=== PATIENT | female | born 1965 | race Hispanic/Latino ===

== ENCOUNTER 2023-08-31 22:20 | Inpatient (IN) | payer SELFPAY ==
--- OUTSIDE RECORDS SUMMARY | 2023-08-31 22:25 | XMS REPORT | Continuity of Care Document ---
Author Name Unknown Address [address] [facility] [address] [place] [address] [facility] thconnect Address [address] [facility] [address] [place] [address] Care Team Providers Care Crude Tester Name Role Phone PCP, PATIENT DOES NOT HAVE A Primary Care Physic merle Unavailable CHUCHO MAURO Attending Clinician UnaCHUCHO Clement Attending Clinician Unav Melany Dias MD Attending Clinician [phone] L_Jordan Attending Clinician Unavailable LC HERNANDEZ Attending Clinician Unavaila Lc Jay Attending Clinician [phone] NERY VILLALOBOS Attending Clinician Unavailable NERY VILLALOBOS Attending Clinician Unavailable STACI Attending Clinician Unavailable Katalina Panda Attending Clinician [phone] Tere Miramontes MD Attending Clinician [phone] CHUCHO MAURO Admitting Clinician Unaeliza Vega Admitting Clinician Unavailable LC HERNANDEZ Admitting Clinician Unavaila NERY Thomas Admitting Clinician Unavailable STACI Admitting Clinician Unavailable Payers Payer Name Policy Type Policy Number Effective Date Expirati on Date Source Problems Condition Name Condition Details Condition Category Status Onset Date Resolution Date Last Treatment Date Treating Clinician Comments Source Pain in joint of left shoulder Pain in joint of left shoulder Disease Active 08-24 00:00: 00 [facility] Type 2 diabetes mellitus with hyperglyce marlon, without long-term current use of insulin Type 2 diabetes mellitus with hyperglyce marlon, without long-term current use of insulin Disease Active 08-24 00:00: 00 [facility] Cerebrovas cular accident (CVA), unspecifie d mechanism Cerebrovas cular accident (CVA), unspecifie d mechanism Disease Active 08-23 00:00: 00 [facility] Chronic back pain Chronic Back Pain Problem Active 15 00:00: 00 [facility] Type 2 diabetes mellitus Type 2 Diabetes Mellitus Problem Active 08-29 00:00: 00 [facility] Mixed hyperlipid emia Mixed Hyperlipid emia Problem Active 204 00:00: 00 [facility] ALT (SGPT) level raised ALT (SGPT) Level Raised Problem Active 204 00:00: 00 [facility] Abnormal blood pressure Abnormal Blood Pressure Problem Active 08-29 00:00: 00 [facility] Increased frequency of urination Increased Frequency of Urination Problem Active 08-24 00:00: 00 [facility] Muscle spasms of head AND/OR neck Muscle Spasms of Head AND/OR Neck Problem Active 08-24 00:00: 00 [facility] Rizvi's palsy Rizvi's Palsy Problem Active 08-24 00:00: 00 [facility] Fatigue Fatigue Problem Active 08-24 00:00: 00 [facility] Breast pain in female Breast pain in female Disease Active 11-10 00:00: 00 [facility] Lump or mass in breast Lump or mass in breast Disease Active 11-10 00:00: 00 Overview: Formattin g of this note might be different from the original. Mammogram and ultrasoun d performed on 11/27/13; negative. Return to routine screening . [facility] Elevated blood pressure reading without diagnosis of hypertensi on Elevated blood pressure reading without diagnosis of hypertensi on Disease Active 11-10 00:00: 00 [facility] Obesity Obesity Disease Active 11-10 00:00: 00 Overview: Formattin g of this note might be different from the original. ICD10 Diagnosis Term [employer] [facility] General counseling and advice for contracept nikhil management General counseling and advice for contracept nikhil management Disease Active 11-10 00:00: 00 Overview: Formattin g of this note might be different from the original. ICD10 Diagnosis Term [employer] [facility] Irregular menstrual cycle Irregular menstrual cycle Disease Active 11-10 00:00: 00 [facility] Allergies, Adverse Reactions, Alerts Allergy Name Allergy Type Status Severity Reaction(s) Onset Date Inactive Date Treating Clinician Comments Source AMPICILL IN-SULBA CTAM DRUG [facility]: 00 [facility] to adverse reaction s Active [facility] 08-20 00:00: 00 [facility] NO KNOWN ALLERGIE S Drug Class Active [facility] Social History Social Habit Start Date Stop Date Quantity Comments Source History of tobacco use Cigarette Smoker [facility] intake 2023-08-24 00:00:00 2023-08-24 00:00:00 Current non-drinker of alcohol (finding) [facility] History of Social function 2023-08-24 00:00:00 2023-08-24 00:00:00 [facility] Tobacco Comment 2023-08-23 00:00:00 2023-08-23 00:00:00 Teaching about smoking can cause hypertension and lead to stroke, patient gave verbal understanding [facility] Cigarettes smoked current (pack per day) - Reported 2023-08-23 00:00:00 2023-08-23 00:00:00 [facility] Cigarette pack-years 2023-08-23 00:00:00 2023-08-23 00:00:00 [facility] Tobacco use and exposure 2023-08-23 00:00:00 2023-08-23 00:00:00 Smokeless tobacco non-user [facility] Exposure to SARS-CoV-2 (event) 2022-02-07 00:00:00 2022-02-17 09:39:00 Not sure [facility] Sex Ass[birth year] At 1965 00:00:00 1965 00:00:00 [facility] Smoking Status Start Date Stop Date Source Smokes tobacco daily 2023-08-23 00:00:00 [facility] Medications Ordered Medication Name Filled Medication Name Start Date Stop Date Current Medication? Ordering Clinician Indication Dosage Frequency Signature (SIG) Comments Components Source atorvastati n (LIPITOR) tablet 40 mg 08-25 03:00: 00 Yes 40mg 40 mg, Oral, QHS, First dose on Wed08/24/23 at 2100, Until Discontinu ed, Routine [facility] aspirin 81 mg chewable tablet 08-25 00:00: 00 11-23 04:59 :00 Yes [id number] 81mg Take 1 tablet by mouth in the morning for 90 days. [facility] clopidogreL 75 mg tablet 08-25 00:00: 00 11-23 04:59 :00 Yes [id number] 75mg Take 1 tablet by mouth in the morning for 90 days. [facility] nicotine 21 mg/24 hr patch 08-25 00:00: 00 09-24 05:59 :00 Yes [id number] 1{patch } Apply 1 Patch to area(s) every 24 (twenty-fo ur) hours for 30 days. [facility] insulin glargine (LANTUS U-100) injection 16 Units 08-24 18:15: 00 08-24 18:42 :00 No 16U 16 Units, Subcutaneo us, ONCE, 1 dose, On Wed08/24/23 at 1215, Routine [facility] Saline Bubble Study 08-24 15:33: 05 Yes [id number] 6mL 6 mL, Injection, SEE-INSTRU CTIONS, Starting on Wed08/24/23 at 0933, Until Discontinu ed, Routine [facility] pantoprazol e (PROTONIX) EC tablet 40 mg 08-24 15:00: 00 Yes 40mg 40 mg, Oral, DAILY, First dose on Wed08/24/23 at 0900, Until Discontinu ed, Routine [facility] polyethylen e glycol 3350 powder 17 g 08-24 15:00: 00 Yes 17g 17 g, Oral, DAILY, First dose on Wed08/24/23 at 0900, Until Discontinu ed, Routine [facility] aspirin chewable tablet 81 mg 08-24 15:00: 00 Yes 81mg 81 mg, Oral, DAILY, First dose on Wed08/24/23 at 0900, Until Discontinu ed, Routine [facility] clopidogreL (PLAVIX) 75 mg tablet 75 mg 08-24 15:00: 00 Yes 75mg 75 mg, Oral, DAILY, First dose on Wed08/24/23 at 0900, Until Discontinu ed, Routine [facility] Sliding Scale Insulin - Lispro (HumaLOG) 08-24 14:00: 00 Yes Subcutaneo us, TID MEALS+HS, First dose on Wed08/24/23 at 0800, Until Discontinu ed, Routine [facility] heparin (porcine) injection 5,000 Units 08-24 14:00: 00 Yes 5000U 5,000 Units, Subcutaneo us, Q12H, First dose on Wed08/24/23 at 0800, Until Discontinu ed, Routine [facility] cefTRIAXone (ROCEPHIN) 1,000 mg in NaCl 0.9% (NS) 100 mL MINI-BAG 08-24 14:00: 00 08-28 13:59 :00 Yes 1000mg 1,000 mg, IV Piggyback, Q24H ABX, 4 doses, First dose on Wed08/24/23 at 0800, Last dose on Wed08/27/23 at 0800, Administer over 30 Minutes, 100 mL
Reas on for Anti-Infec tive: Documented Infection< br>Documen elysia Infection Site: Urine
D uration of Therapy: Other (see Comments) [facility] atorvastati n calcium (LIPITOR ORAL) 08-24 11:24: 42 08-24 00:00 :00 No Take by mouth. [facility] atorvastati n calcium (LIPITOR ORAL) 08-24 11:24: 42 08-24 00:00 :00 No Take by mouth. Patient unsure of the dose [facility] metformin HCl (METFORMIN ORAL) 08-24 11:24: 08-24 00:00 :00 No Take by mouth. Patient unsure of the dose [facility] nicotine (NICODERM) 21 mg/24 hr patch 1 Patch 08-24 08:00: 00 Yes 1{patch } 1 Patch, Topical, Administer over 24 Hours, Q24H, First dose on Wed08/24/23 at 0200, Until Discontinu ed, Routine [facility] NaCl 0.9% (NS) IV infusion 1,000 mL 08-24 08:00: 00 Yes 1000mL at 50 mL/hr, IV Infusion, CONTINUOUS , Starting on Wed08/24/23 at 0200, Until Discontinu ed, Routine [facility] glucagon (GLUCAGEN DIAGNOSTIC KIT) injection 1 mg 08-24 06:54: 10 Yes 1mg 1 mg, Intramuscu lar, PRN, Starting on Wed08/24/23 at 0054, Until Discontinu ed, CARMEN, Blood Glucose < or = 70 mg/dL and patient is NPO, unable to swallow or has mental changes. [facility] dextrose 10% (D10W) bolus infusion 125 mL 08-24 06:54: 10 Yes 125mL 125 mL, IV Infusion, PRN, Administer over 60 Minutes, Blood Glucose < or = 70 mg/dL and patient is NPO, unable to swallow or has mental status changes., Starting on Wed08/24/23 at 0054<br&gt ;If blood glucose is < or = 70 mg/dL and patient is NPO, unable to swallow or has mental status changes: &nbs p;IF IV access available: Dextrose 50%. 1. 25 mL (1/2 amp) of D50W IV Push. 2. Blood glucose - draw blood glucose 15 minutes after D50W Administra tion. 3. If blood glucose is < 80 mg/dL, repeat.
[facility] acetaminoph en-codeine (TYLENOL #3) 300-30 mg tablet 1 tablet 08-24 06:53: 53 Yes 1{tbl} 1 tablet, Oral, Q4HPRN, Starting on Wed08/24/23 at 0053, Until Discontinu ed, Routine, Pain (scale 4-6), Pain (scale 1-3) [facility] labetaloL (NORMODYNE) injection 10 mg 08-24 05:22: 26 Yes 10mg 10 mg, Slow IV Push, [id number], 5 doses, Starting on Wed08/23/23 at 2322, Until Discontinu ed, Routine, Hypertensi on SBP> 220 [facility] cefTRIAXone (ROCEPHIN) 1,000 mg in NaCl 0.9% (NS) 100 mL MINI-BAG 08-24 01:00: 00 08-24 01:35 :00 No 1000mg 1,000 mg, IV Piggyback, ONCE, 1 dose, On Wed08/23/23 at 1900, Administer over 30 Minutes, 100 mL
Reas on for Anti-Infec tive: Documented Infection< br>Documen elysia Infection Site: Urine
D uration of Therapy: 7 days [facility] labetaloL (NORMODYNE) injection 20 mg 08-24 00:16: 00 08-24 01:45 :00 No 20mg 20 mg, Slow IV Push, ONCE, 1 dose, On Wed08/23/23 at 1830, Routine [facility] atorvastati n 40 mg tablet 08-24 00:00: 11-22 04:59 :00 Yes [id number] 40mg Take 1 tablet by mouth at bedtime for 90 days. [facility] levothyroxi ne 25 mcg tablet 08-24 00:00: 00 11-22 04:59 :00 Yes [id number] 50ug Take 2 tablets by mouth every morning for 90 days. [facility] metFORMIN 500 mg tablet 08-24 00:00: 11-22 04:59 :00 Yes [id number] 1000mg Take 2 tablets by mouth in the morning and 2 tablets in the evening. Take with meals. Do all this for 90 days. [facility] pioglitazon e 15 mg tablet 08-24 00:00: 11-22 04:59 :00 Yes [id number] 15mg Take 1 tablet by mouth in the morning for 90 days. [facility] gabapentin 100 mg capsule 08-24 00:00: 09-23 05:59 :00 Yes [id number] 100mg Take 1 capsule by mouth in the morning and 1 capsule at noon and 1 capsule in the evening. Do all this for 30 days. [facility] cephALEXin 500 mg capsule 08-24 00:00: 00 09-01 05:59 :00 Yes [id number] 500mg Take 1 capsule by mouth 4 (four) times daily for 7 days. [facility] labetaloL (NORMODYNE) injection 20 mg 08-24 00:00: 08-23 23:14 :00 No 20mg 20 mg, Slow IV Push, ONCE, 1 dose, On Wed08/23/23 at 1800, Routine [facility] aspirin tablet 325 mg 08-23 23:30: 00 08-24 05:30 :06 No 325mg 325 mg, Oral, DAILY, First dose (after last modificati on) on Wed08/23/23 at 1730, Until Discontinu ed, Routine [facility] iopamidol (ISOVUE 370-500 mL) injection 80 mL 08-23 23:15: 00 08-23 22:23 :00 No [id number] 80mL 80 mL, Intravenou s, ONCE, 1 dose, On Wed08/23/23 at 1715, Routine [facility] NaCl 0.9% (NS) injection 5 mL 08-23 19:51: 30 Yes 5mL 5 mL, Slow IV Push, PRN - SEE INSTRUCTIO NS, Starting on Wed08/23/23 at 1351, Until Discontinu ed, 10 mL [facility] famotidine (PEPCID AC) tablet 40 mg 08-21 06:00: 00 08-21 04:57 :00 No 40mg 40 mg, Oral, ONCE TODAY, 1 dose, On 08/21/23 at 0000, Routine [facility] dexamethaso ne sod phos PF injection 10 mg 08-21 06:00: 00 08-21 04:57 :00 No 10mg 10 mg, Oral, ONCE, 1 dose, On 08/21/23 at 0000, Routine [facility] diphenhydrA MINE (BENADRYL) injection 25 mg 08-21 05:00: 00 08-21 04:57 :00 No 25mg 25 mg, Slow IV Push, ONCE, 1 dose, On Wed08/20/23 at 2300, STAT [facility] morpHINE (4 mg/mL) injection 4 mg 08-21 03:45: 00 08-21 03:42 :00 No 4mg 4 mg, Slow IV Push, ONCE, 1 dose, On Wed08/20/23 at 2145, STAT [facility] ampicillin- sulbactam (UNASYN) 3 g in NaCl 0.9% (NS) 100 mL MINI-BAG 08-21 03:15: 00 08-21 04:30 :00 No 3g 3 g, IV Piggyback, ONCE, 1 dose, On Wed08/20/23 at 2115, Administer over 30 Minutes, 100 mL
Reas on for Anti-Infec tive: Documented Infection< br>Documen elysia Infection Site: Skin / Soft Tissue
Duration of Therapy: 7 days [facility] iopamidol (ISOVUE 370-500 mL) injection 80 mL 08-21 02:00: 00 08-21 02:15 :00 No [id number] 80mL 80 mL, Intravenou s, ONCE, 1 dose, On Wed08/20/23 at 2015, Routine [facility] ondansetron (ZOFRAN (PF)) injection 4 mg 08-20 22:45: 00 08-21 00:10 :00 No 4mg 4 mg, Slow IV Push, ONCE, 1 dose, On Wed08/20/23 at 1645, CARMEN [facility] morpHINE (4 mg/mL) injection 4 mg 08-20 22:45: 00 08-21 00:10 :00 No 4mg 4 mg, Slow IV Push, ONCE, 1 dose, On Wed08/20/23 at 1645, STAT [facility] ibuprofen 600 mg tablet 08-20 00:00: 00 Yes [id number] 600mg Take 1 tablet by mouth every 6 (six) hours as needed for Pain (scale 4-6). [facility] acetaminoph en-codeine 300-30 mg tablet 08-20 00:00: 00 Yes [id number] 1{tbl} Take 1 tablet by mouth every 4 (four) hours as needed for Pain (scale 7-10). Indication s: acute pain [facility] azithromyci n 250 mg tablet 08-20 00:00: 00 08-26 05:59 :00 Yes [id number] Take 2 tablets by mouth daily for 1 day, THEN 1 tablet daily for 4 days. [facility] azithromyci n 250 mg tablet 08-20 00:00: 00 08-24 00:00 :00 No [id number] Take 2 tablets by mouth daily for 1 day, THEN 1 tablet daily for 4 days. [facility] ibuprofen 600 mg tablet 08-20 00:00: 00 08-24 00:00 :00 No [id number] 600mg Take 1 tablet by mouth every 6 (six) hours as needed for Pain (scale 4-6). [facility] acetaminoph en-codeine 300-30 mg tablet 08-20 00:00: 00 08-24 00:00 :00 No [id number] 1{tbl} Take 1 tablet by mouth every 4 (four) hours as needed for Pain (scale 7-10). Indication s: acute pain [facility] iopamidol (ISOVUE 370-500 mL) injection 100 mL 02-17 18:15: 00 02-17 17:08 :00 No [id number] 100mL 100 mL, Intravenou s, ONCE, 1 dose, On Wed02/17/22 at 1315, Routine [facility] morpHINE (4 mg/mL) injection 4 mg 02-17 15:45: 00 02-17 15:48 :00 No 4mg 4 mg, Slow IV Push, ONCE, 1 dose, On Wed02/17/22 at 1045, Routine [facility] amoxicillin -clavulanat e 875-125 mg per tablet 02-17 00:00: 00 Yes [id number] 1{tbl} Take 1 tablet by mouth every 12 (twelve) hours. [facility] amoxicillin -clavulanat e 875-125 mg per tablet 02-17 00:00: 00 08-24 00:00 :00 No [id number] 1{tbl} Take 1 tablet by mouth every 12 (twelve) hours. [facility] amoxicillin 875 mg tablet 02-17 00:00: 00 02-25 04:59 :00 No [id number] 875mg Take 1 tablet by mouth in the morning and 1 tablet in the evening. Do all this for 7 days. [facility] HYDROCODONE /ACETAMINOP HEN (LORTAB ORAL) 04-14 14:51: 39 04-14 00:00 :00 No Take by mouth. [facility] cephALEXin (KEFLEX) 500 mg capsule 04-14 14:51: 27 04-14 00:00 :00 No 500mg Take 500 mg by mouth 4 (four) times daily. [facility] predniSONE 20 mg tablet 04-14 00:00: 00 04-22 04:59 :00 No [id number] 60mg Take 3 tablets by mouth every morning for 7 days. [facility] clindamycin 300 mg capsule 12-21 00:00: 00 04-14 00:00 :00 No [id number] 300mg Take 1 capsule by mouth 3 (three) times daily. [facility] ibuprofen 600 mg tablet 12-19 00:00: 00 04-14 00:00 :00 No [id number] 600mg Take 1 tablet by mouth every 6 (six) hours as needed for Pain (scale 4-6). [facility] ondansetron (ZOFRAN ODT) 4 mg disintegrat ing tablet 12-19 00:00: 00 04-14 00:00 :00 No [id number] 4mg Take 1 tablet by mouth every 8 (eight) hours as needed for Nausea and Vomiting (N/V). [facility] traMADOL 50 mg tablet 10-25 00:00: 00 04-14 00:00 :00 No 50mg Take 1 tablet by mouth every 6 (six) hours as needed (pain). [facility] phenazopyri dine 200 mg tablet 10-25 00:00: 04-14 00:00 :00 No 200mg Take 1 tablet by mouth 3 (three) times daily. [facility] metformin ER 500 mg tablet,exte nded release 24 hr TAKE 1 TABLET BY MOUTH ONCE DAILY IN THE MORNING metformin ER 500 mg tablet,exte nded release 24 hr TAKE 1 TABLET BY MOUTH ONCE DAILY IN THE MORNING No metformin ER 500 mg tablet,ext ended release 24 hr TAKE 1 TABLET BY MOUTH ONCE DAILY IN THE MORNING [facility] rosuvastati n 10 mg tablet TAKE 1 TABLET BY MOUTH ONCE DAILY IN THE EVENING FOR 30 DAYS rosuvastati n 10 mg tablet TAKE 1 TABLET BY MOUTH ONCE DAILY IN THE EVENING FOR 30 DAYS No rosuvastat in 10 mg tablet TAKE 1 TABLET BY MOUTH ONCE DAILY IN THE EVENING FOR 30 DAYS [facility] metformin ER 500 mg tablet,exte nded release 24 hr TAKE 1 TABLET BY MOUTH ONCE DAILY IN THE MORNING metformin ER 500 mg tablet,exte nded release 24 hr TAKE 1 TABLET BY MOUTH ONCE DAILY IN THE MORNING No metformin ER 500 mg tablet,ext ended release 24 hr TAKE 1 TABLET BY MOUTH ONCE DAILY IN THE MORNING [facility] rosuvastati n 10 mg tablet TAKE 1 TABLET BY MOUTH ONCE DAILY IN THE EVENING FOR 30 DAYS rosuvastati n 10 mg tablet TAKE 1 TABLET BY MOUTH ONCE DAILY IN THE EVENING FOR 30 DAYS No rosuvastat in 10 mg tablet TAKE 1 TABLET BY MOUTH ONCE DAILY IN THE EVENING FOR 30 DAYS [facility] etodolac 400 mg tablet Take 1 tablet every day by oral route as directed for 30 days. etodolac 400 mg tablet Take 1 tablet every day by oral route as directed for 30 days. No 1 Q1D etodolac 400 mg tablet Take 1 tablet every day by oral route as directed for 30 days. [facility] lisinopril 2.5 mg tablet Take 1 tablet every day by oral route in the morning for 30 days. lisinopril 2.5 mg tablet Take 1 tablet every day by oral route in the morning for 30 days. No 1 Q1D lisinopril 2.5 mg tablet Take 1 tablet every day by oral route in the morning for 30 days. [facility] metformin ER 500 mg tablet,exte nded release 24 hr TAKE 1 TABLET BY MOUTH ONCE DAILY IN THE MORNING 30 minutes before eating breakfast. metformin ER 500 mg tablet,exte nded release 24 hr TAKE 1 TABLET BY MOUTH ONCE DAILY IN THE MORNING 30 minutes before eating breakfast. No metformin ER 500 mg tablet,ext ended release 24 hr TAKE 1 TABLET BY MOUTH ONCE DAILY IN THE MORNING 30 minutes before eating breakfast. [facility] rosuvastati n 10 mg tablet TAKE 1 TABLET BY MOUTH ONCE DAILY IN THE EVENING rosuvastati n 10 mg tablet TAKE 1 TABLET BY MOUTH ONCE DAILY IN THE EVENING No rosuvastat in 10 mg tablet TAKE 1 TABLET BY MOUTH ONCE DAILY IN THE EVENING [facility] bromphenira mine-pseudo ephedrine-D M 2 mg-30 mg-10 mg/5 mL oral syrup Take 10 mL every 4-6 hours by oral route as needed for 5 days. bromphenira mine-pseudo ephedrine-D M 2 mg-30 mg-10 mg/5 mL oral syrup Take 10 mL every 4-6 hours by oral route as needed for 5 days. No 10mL Q5H bromphenir amine-pseu doephedrin e-DM 2 mg-30 mg-10 mg/5 mL oral syrup Take 10 mL every 4-6 hours by oral route as needed for 5 days. [facility] cyclobenzap rine 5 mg tablet Take 1 tablet twice a day by oral route as needed for 5 days. cyclobenzap rine 5 mg tablet Take 1 tablet twice a day by oral route as needed for 5 days. No 1 BID cyclobenza jasmeet 5 mg tablet Take 1 tablet twice a day by oral route as needed for 5 days. [facility] ibuprofen 200 mg tablet Take 1 tablet every 6 hours by oral route. ibuprofen 200 mg tablet Take 1 tablet every 6 hours by oral route. No 1 Q6H ibuprofen 200 mg tablet Take 1 tablet every 6 hours by oral route. [facility] neomycin-po lymyxin-hyd rocort 3.5 mg-10,000 unit/mL-1 % ear drops,susp INSTILL 4 DROPS INTO AFFECTED EAR(S) BY OTIC ROUTE 3 TIMES PER DAY neomycin-po lymyxin-hyd rocort 3.5 mg-10,000 unit/mL-1 % ear drops,susp INSTILL 4 DROPS INTO AFFECTED EAR(S) BY OTIC ROUTE 3 TIMES PER DAY No neomycin-p olymyxin-h ydrocort 3.5 mg-10,000 unit/mL-1 % ear drops,susp INSTILL 4 DROPS INTO AFFECTED EAR(S) BY OTIC ROUTE 3 TIMES PER DAY [facility] sulfamethox azole 800 mg-trimetho prim 160 mg tablet Take 1 tablet every 12 hours by oral route as directed for 7 days. sulfamethox azole 800 mg-trimetho prim 160 mg tablet Take 1 tablet every 12 hours by oral route as directed for 7 days. No 1 Q12H sulfametho xazole 800 mg-trimeth oprim 160 mg tablet Take 1 tablet every 12 hours by oral route as directed for 7 days. [facility] Tylenol PM Tylenol PM No Tylenol PM [facility] metformin ER 500 mg tablet,exte nded release 24 hr TAKE 1 TABLET BY MOUTH ONCE DAILY IN THE MORNING metformin ER 500 mg tablet,exte nded release 24 hr TAKE 1 TABLET BY MOUTH ONCE DAILY IN THE MORNING No metformin ER 500 mg tablet,ext ended release 24 hr TAKE 1 TABLET BY MOUTH ONCE DAILY IN THE MORNING [facility] rosuvastati n 10 mg tablet TAKE 1 TABLET BY MOUTH ONCE DAILY IN THE EVENING FOR 30 DAYS rosuvastati n 10 mg tablet TAKE 1 TABLET BY MOUTH ONCE DAILY IN THE EVENING FOR 30 DAYS No rosuvastat in 10 mg tablet TAKE 1 TABLET BY MOUTH ONCE DAILY IN THE EVENING FOR 30 DAYS [facility] Immunizations Ordered Immunization Name Filled Immunization Name Date Status Comments Source influenza, injectable, quadrivalent, preservative free influenza, injectable, quadrivalent, preservative free 2020-05-20 13:37:06 [facility] influenza, injectable, quadrivalent, preservative free influenza, injectable, quadrivalent, preservative free 2020-05-20 13:37:06 [facility] influenza, injectable, quadrivalent, preservative free influenza, injectable, quadrivalent, preservative free 2020-05-20 13:37:06 [facility] influenza, injectable, quadrivalent, preservative free influenza, injectable, quadrivalent, preservative free 2020-05-20 13:37:06 [facility] influenza, injectable, quadrivalent, preservative free influenza, injectable, quadrivalent, preservative free 2020-05-20 13:37:06 [facility] Influenza, injectable, MDCK, quadrivalent Influenza, injectable, MDCK, quadrivalent 2019-06-15 04:59:00 [facility] Influenza, injectable, MDCK, quadrivalent Influenza, injectable, MDCK, quadrivalent 2019-06-15 04:59:00 Completed [facility] Influenza, injectable, MDCK, quadrivalent Influenza, injectable, MDCK, quadrivalent 2019-06-15 04:59:00 Completed [facility] Influenza, injectable, MDCK, quadrivalent Influenza, injectable, MDCK, quadrivalent 2019-06-15 04:59:00 Completed [facility] Influenza, injectable, MDCK, quadrivalent Influenza, injectable, MDCK, quadrivalent 2019-06-15 04:59:00 Completed [facility] Tdap Tdap 2018-05-26 16:26:00 Completed [facility] Tdap [facility] 2018-05-26 16:26:00 Completed [facility] Tdap [facility] 2018-05-26 16:26:00 Completed [facility] Tdap [facility] 2018-05-26 16:26:00 Completed [facility] Tdap [facility] 2018-05-26 16:26:00 Completed [facility] Td 2007-07-26 00:00:00 Completed [facility] Td 2007-07-26 00:00:00 Completed [facility] TD, NOS Unknown Completed [facility] TD, NOS Unknown Completed [facility] Vital Signs Vital Name Observation Time Observation Value Comments S ource Systolic blood pressure 2023-08-24 21:16:00 132 mm[Hg] [facility] Diastolic blood pressure 2023-08-24 21:16:00 44 mm[Hg] [facility] Heart rate 2023-08-24 21:16:00 76 /min [facility] Body temperature 2023-08-24 21:16:00 36.33 Kim [facility] Respiratory rate 2023-08-24 21:16:00 18 /min [facility] Oxygen saturation in Arterial blood by Pulse oximetry 2023-08-24 21:16:00 94 /min [facility] Body height 2023-08-24 05:40:00 165 cm [facility] Body weight 2023-08-24 05:40:00 81.647 kg [facility] BMI 2023-08-24 05:40:00 29.99 kg/m2 [facility] Systolic blood pressure 2023-08-21 05:19:00 142 mm[Hg] [facility] Diastolic blood pressure 2023-08-21 05:19:00 66 mm[Hg] [facility] Heart rate 2023-08-21 05:19:00 78 /min [facility] Body temperature 2023-08-21 05:19:00 36.72 Kim [facility] Respiratory rate 2023-08-21 05:19:00 17 /min [facility] Oxygen saturation in Arterial blood by Pulse oximetry 2023-08-21 05:19:00 96 /min [facility] Body height 2023-08-20 22:12:00 162.6 cm [facility] Body weight 2023-08-20 22:12:00 81.647 kg [facility] BMI 2023-08-20 22:12:00 30.90 kg/m2 [facility] Systolic blood pressure 2022-02-17 18:40:55 155 mm[Hg] [facility] Diastolic blood pressure 2022-02-17 18:40:55 78 mm[Hg] [facility] Heart rate 2022-02-17 18:40:55 65 /min [facility] Body temperature 2022-02-17 18:40:55 37 Kim [facility] Respiratory rate 2022-02-17 18:40:55 18 /min [facility] Oxygen saturation in Arterial blood by Pulse oximetry 2022-02-17 18:40:55 99 /min [facility] Body weight 2022-02-17 14:40:00 77.111 kg [facility] BMI 2022-02-17 14:40:00 28.29 kg/m2 [facility] BP Diastolic 2020-09-26 00:00:00 65 mm[Hg] [facility] Height 2020-09-26 00:00:00 65 [in_i] [facility] BMI (Body Mass Index) 2020-09-26 00:00:00 29.3 kg/m2 [facility] BP Systolic 2020-09-26 00:00:00 171 mm[Hg] [facility] Body Weight 2020-09-26 00:00:00 2812.8 [oz_av] [facility] BP Diastolic 2020-08-29 00:00:00 80 mm[Hg] [facility] Height 2020-08-29 00:00:00 65 [in_i] [facility] BMI (Body Mass Index) 2020-08-29 00:00:00 30.4 kg/m2 [facility] BP Systolic 2020-08-29 00:00:00 171 mm[Hg] [facility] Body Weight 2020-08-29 00:00:00 2921.6 [oz_av] [facility] BMI (Body Mass Index) 2020-08-13 00:00:00 30.7 kg/m2 [facility] BP Systolic 2020-08-13 00:00:00 136 mm[Hg] [facility] Body Weight 2020-08-13 00:00:00 2953.6 [oz_av] [facility] BP Diastolic 2020-08-13 00:00:00 90 mm[Hg] [facility] Height 2020-08-13 00:00:00 65 [in_i] [facility] Systolic blood pressure 2019-04-14 17:00:00 161 mm[Hg] [facility] Diastolic blood pressure 2019-04-14 17:00:00 84 mm[Hg] [facility] Heart rate 2019-04-14 17:00:00 71 /min [facility] Respiratory rate 2019-04-14 17:00:00 13 /min [facility] Oxygen saturation in Arterial blood by Pulse oximetry 2019-04-14 17:00:00 98 /min [facility] Body temperature 2019-04-14 14:49:00 36.44 Kim [facility] Body weight 2019-04-14 14:49:00 90.719 kg [facility] BMI 2019-04-14 14:49:00 33.28 kg/m2 [facility] Procedures Procedure Date / Time Performed Performing Clinician Source POCT GLUCOSE (AUTOMATED) 2023-08-24 22:55:00 Mem onChuchoeshan [facility] POCT GLUCOSE (AUTOMATED) 2023-08-24 18:26:00 Mem on, Chucho Pachecoeshan [facility] TRANSTHORACIC ECHO (TTE) COMPLETE 2023-08-24 15:29:00 Elvis [facility] POCT GLUCOSE (AUTOMATED) 2023-08-24 14:38:00 Mem on, Chucho Pachecoeshan [facility] CREATINE KINASE 2023-08-24 12:14:00 hPilomena Valladares [facility] MAGNESIUM 2023-08-24 12:14:00 Elvis [facility] VITAMIN B12, LEVEL 2023-08-24 12:14:00 Angely Valladares [facility] FREE T4 2023-08-24 12:14:00 Elvis [facility] BASIC METABOLIC PANEL (NA, K, CL, CO2, GLUCOSE, BUN, CREATININE, CA) 2023-08-24 12:14:00 Elvis [facility] VERIFYNOW ASPIRIN TEST 2023-08-24 12:14:00 Elvis [facility] LIPID PANEL (11537)(TOTAL CHOLESTEROL, TRIGLYCERIDES, HDL) 2023-08-24 12:13:00 [facility] CBC WITHOUT DIFF 2023-08-24 12:13:00 eJnny Valladares [facility] MR STROKE BRAIN WO CONTRAST 2023-08-24 07:24:41 [facility] XR CHEST 1 VW 2023-08-24 05:52:00 [facility] EKG-12 LEAD 2023-08-24 00:58:28 Melany Guardado [facility] CT STROKE ANGIOGRAM HEAD 2023-08-23 22:28:00 Shyla Guardado [facility] CT STROKE ANGIOGRAM NECK 2023-08-23 22:28:00 Shyla Guardado [facility] CT STROKE HEAD WO CONTRAST 2023-08-23 22:26:21 Melany Guardado [facility] URINALYSIS 2023-08-23 21:58:00 Melany Guardado [facility] POCT GLUCOSE(AGE >30DAYS) 2023-08-23 21:55:00 Melany Guardado [facility] TROPONIN I 2023-08-23 21:49:00 Melany Guardado [facility] THYROID STIMULATING HORMONE 2023-08-23 21:49:00 Adam Valladares [facility] BASIC METABOLIC PANEL (NA, K, CL, CO2, GLUCOSE, BUN, CREATININE, CA) 2023-08-23 21:49:00 Melany Guardado [facility] CBC WITHOUT DIFF 2023-08-23 21:49:00 [facility] (A1C) 2023-08-23 21:49:00 Adma Valladares [facility] PROTHROMBIN TIME / INR 2023-08-23 21:49:00 Rosita Guardado [facility] ACTIVATED PARTIAL THRMPLAS DANNY 2023-08-23 21:49:00 Melany Guardado [facility] POCT GLUCOSE (AUTOMATED) 2023-08-23 21:45:00 Shyla Guardado [facility] ASSIGNMENT OF BENEFITS 2023-08-23 20:21:49 Docto r Unassigned, [place] [facility] CONSENT/REFUSAL FOR DIAGNOSIS AND TREATMENT 2023-08-23 19:34:19 Doctor Unassigned, [place] [facility] CRITICAL CARE 2023-08-23 19:33:00 Melany Guardado [facility] CT CHEST PULMONARY ANGIOGRAM 2023-08-21 02:11:33 Lc Hernandez [facility] LIPASE 2023-08-20 22:52:00 Lc Hernandez [facility] COMP. METABOLIC PANEL (90088) 2023-08-20 22:52:00 Lc Hernandez [facility] CBC WITH DIFF 2023-08-20 22:52:00 Lc Hernandez [facility] ASSIGNMENT OF BENEFITS 2023-08-20 22:44:48 Docto r Unassigned, [place] [facility] CONSENT/REFUSAL FOR DIAGNOSIS AND TREATMENT 2023-08-20 22:06:30 Doctor Unassigned, [place] [facility] CT ABDOMEN PELVIS W CONTRAST 2022-02-17 17:06:28 [facility] POCT GLUCOSE (AUTOMATED) 2022-02-17 15:46:00 Nery Villalobos [facility] COMP. METABOLIC PANEL (38367) 2022-02-17 15:38:00 Rosangela Pelayo [facility] CBC WITH DIFF 2022-02-17 15:38:00 [facility] URINALYSIS 2022-02-17 15:38:00 [facility] CONSENT/REFUSAL FOR DIAGNOSIS AND TREATMENT 2022-02-17 14:41:03 Doctor Unassigned, [place] [facility] TROPONIN I 2019-04-14 16:15:00 Tere Miramontes [facility] COMP. METABOLIC PANEL (50386) 2019-04-14 16:15:00 Tere Miramontes [facility] CT HEAD WO CONTRAST 2019-04-14 15:42:17 Tere Miramontes [facility] CBC WITH DIFFERENTIAL 2019-04-14 15:16:00 Susie Miramontes [facility] PROTHROMBIN TIME / INR 2019-04-14 15:16:00 Kapil Miramontes [facility] EKG-12 LEAD 2019-04-14 15:11:55 Tere Miramontes [facility] POCT GLUCOSE (AUTOMATED) 2019-04-14 14:55:00 Brenda Miramontes [facility] CONSENT/REFUSAL FOR DIAGNOSIS AND TREATMENT 2019-04-14 14:41:53 Doctor Unassigned, [place] [facility] Back [facility] Breast Surgery [facility] Plan of Care Planned Activity Planned Date Details Comments Source Diagnostic Test Pending 2020-11-07 00:00:00 CMP, serum or plasma [code = CMP, serum or plasma] [facility] Diagnostic Test Pending 2020-11-07 00:00:00 HbA1c (hemoglobin A1c), blood [code = HbA1c (hemoglobin A1c), blood] [facility] Diagnostic Test Pending 2020-11-07 00:00:00 lipid panel w/ direct LDL, serum [code = lipid panel w/ direct LDL, serum] [facility] Diagnostic Test Pending 2020-11-07 00:00:00 TSH + free T4, serum [code = TSH + free T4, serum] [facility] Diagnostic Test Pending 2020-11-07 00:00:00 CBC w/ manual diff [code = CBC w/ manual diff] [facility] Instructions [facility] Encounters Start Date/Time End Date/Time Encounter Type Admission Type Attending Clinicians Care Facility Care Department Encounter ID Source 2023-08-23 13:50:00 2023-08-24 18:03:00 Outpatient X CHUCHO MAURO [facility]AD [facility] ANGELICA [id number] [facility] 2023-08-23 13:50:00 2023-08-24 18:03:00 Emergency Melany Guardado [facility] [id number] [facility] 2023-08-23 00:00:00 2023-08-23 00:00:00 Outpatient L_Pena [facility] [id number] [facility] 2023-08-20 16:13:00 2023-08-20 23:24:00 Emergency X LC HERNANDEZ [facility] ERT [id number] [facility] 2023-08-20 16:13:00 2023-08-20 23:24:00 Emergency Lc Hernandez [facility] [id number] [facility] 2022-02-17 09:42:00 2022-02-17 13:44:00 Emergency Emerson GRISELDANERY MATTHEW [facility] ERT [id number] [facility] 2022-02-17 09:42:00 2022-02-17 13:44:00 Emergency Nery Villalobos [facility] [id number] [facility] 2021-02-05 12:38:00 2021-02-05 12:38:00 Outpatient SCHAUBROECK _L [facility] [id number] 2021 01:01:00 2021 01:01:00 Outpatient [facility] [id number] [facility] 2020-11-28 01:02:00 2020-11-28 01:02:00 Outpatient [facility]K [facility] [id number] [facility] 2020-11-07 11:30:00 2020-11-07 11:30:00 Outpatient [facility] [id number] [facility] 2020-11-07 00:00:00 2020-11-07 00:00:00 Katalina amaro, AMANP-C: [address] [place] [address], [address], [place] [address] , Ph. [facility] [id number] [facility] 2020-11-07 00:00:00 2020-11-07 00:00:00 Outpatient Farzad Katalina [facility] [id number] 2020-10-24 01:03:00 2020-10-24 01:03:00 Outpatient [facility]K _L [facility] [id number] 2020-09-26 01:09:00 2020-09-26 01:09:00 Outpatient [facility]K [facility] [id number] 2020-09-26 00:00:00 2020-09-26 00:00:00 Katalina amaro, [facility]-: [address] [place] [address], [address] [address] , Ph. [facility] [id number] [facility] 2020-09-26 00:00:00 2020-09-26 00:00:00 Outpatient Farzad Katalina [facility] [id number] 2020-09-26 00:00:00 2020-09-26 00:00:00 Outpatient Farzad Katalina [facility] [id number] 2020-09-19 01:01:00 2020-09-19 01:01:00 Outpatient [facility]K _L [facility] [id number] [facility] 2020-08-29 04:28:00 2020-08-29 04:28:00 Outpatient [facility]K _L [facility] [id number] [facility] 2020-08-29 00:00:00 2020-08-29 00:00:00 Outpatient Katalina Panda [facility] [id number] 2020-08-29 00:00:00 2020-08-29 00:00:00 AMAN Kidd-: [address] [place] [address], [address] [address] , Ph. [facility] [id number] [facility] 2020-08-15 01:03:00 2020-08-15 01:03:00 Outpatient [facility]AU[facility]K _L [facility] [id number] [facility] 2020-08-13 05:32:00 2020-08-13 05:32:00 Outpatient [facility]AU[facility]O[place]K _L [facility] [id number] [facility] 2020-08-13 00:00:00 2020-08-13 00:00:00 Outpatient Farzad Katalina Joseph [facility] [id number] 2020-08-13 00:00:00 2020-08-13 00:00:00 LAVELL Kidd-: [address] [place] [address], [address] [place] [address] , Ph. [facility] [id number] [facility] 2019-04-14 09:52:34 2019-04-14 13:53:00 Emergency Tere Miramontes [facility] [id number] [facility] Results Test Description Test Time Test Comments Results Result Co mments Source [facility] - Transthoracic echo (TTE) 2023-08-24 18:43:09* Test Item Value Reference Range Interpretation Comme nts Height (test code = 8789952348) 64 in Weight (test code = 8090928653) 180 lbs Systolic BP (test code = 7200529784) 146 mmHg Diastolic BP (test code = 5298445243) 58 mmHg Heart Rate (test code = 2769164446) 72 bpm BSA (test code = 1592285425) 1.87 m2 Ao root diam (test code = 2170314852) 2.90 cm Aortic root (test code = 7816000183) 2.9 cm Ao root annulus (test code = 8627172500) 2.9 cm LA size (test code = 5994146664) 3.1 cm LVIDD (test code = 5696428409) 4.40 cm Left Ventricular End Diastolic Volume by Teichholz Method (test code = 3080949) 86.4 mL IVS (test code = 0551855459) 0.85 cm Interventricular Septum Diastolic Thickness by 2D (test code = 1945172) 0.85 cm LVPWD (test code = 1498291797) 1.22 cm PW (test code = 9985021834) 1.22 cm 0.6-1.1 EF(Teich) (test code = 6993407554) 60.10 % LVIDS (test code = 2194294622) 3.00 cm Left Ventricular End Systolic Volume by Teichholz Method (test code = 9371410) 34.5 mL FS (test code = 1380379225) 32 % EF - 2D (test code = 18795121) 60.10 % LVOT diameter (test code = 0799751987) 1.97 cm LVOT area (test code = 1695477709) 3.00 cm2 MV Prop V (test code = 0443173947) 59.20 cm/s E wave decelartion time (test code = 1939599877) 0.21 s MV Peak A Kenneth (test code = 8880719012) 85.4 cm/s MV Peak E Kenneth (test code = 3871398471) 87.3 cm/s E/A ratio (test code = 8129507731) 1.02 ratio LAV(MOD-sp4) (test code = 8751889533) 59.10 mL LVOT stroke volume (test code = 0905953754) 88.80 cm3 LVOT peak kenneth (test code = 9934578784) 120.3 cm/s LVOT mn grad (test code = 6604226636) 3.2 mmHg AV LVOT peak gradient (test code = 8568426345) 5.8 mmHg LVOT peak VTI (test code = 9457534412) 29.2 cm LV V1 mean (test code = 9063544261) 85.40 cm/s TR Peak Kenneth (test code = 6034069928) 256.3 cm/s Triscuspid Valve Regurgitation Peak Gradient (test code = 5535889534) 26.3 mmHg Tapse (test code = 2584231540) 2.17 cm LA Volume Index (BP) (test code = 0568718101) 34.3 mL/m2 LA volume (BP) (test code = 0632946526) 64.2 mL LAV(MOD-sp2) (test code = 2866793867) 70.20 mL Radiology Study observation (narrative) (test code = 54843-3) BENIGNO (test code = BENIGNO) ?Left?Ventricle: Left ventricle size is normal. Mildly increased wall thickness. There is concentric remodeling. Normal wall motion. Normal systolic function with a visually estimated EF of 60 - 65%. There is grade 2 diastolic dysfunction. Elevated left ventricular filling pressure. ?Right?Ventricle: Right ventricle size is normal. Normal systolic function. ?Left?Atrium: Left atrium is mildly dilated. Left atrium volume index is 34.3 mL/m2. Saline contrast shows no shunt. Lipomatous hypertrophy present. ?Tricuspid?Valve: Mild transvalvular regurgitation. Right ventricular systolic pressure is 30-35 mmHg. ?IVC/SVC: IVC diameter is less than or equal to 21 mm and decreases less than 50% during inspiration; therefore the estimated right atrial pressure is intermediate (~8 mmHg). Left VentricleLeft ventricle size is normal. Mildly increased wall thickness. There is concentric remodeling. Normal wall motion. Normal systolic function with a visually estimated EF of 60 - 65%. There is grade 2 diastolic dysfunction. Elevated left ventricular filling pressure.Right VentricleRight ventricle size is normal. Normal systolic function.Left AtriumLeft atrium is mildly dilated. Left atrium volume index is 34.3 mL/m2. Saline contrast shows no shunt. Lipomatous hypertrophy present.Right AtriumRight atrium size is normal.IVC/SVCIVC diameter is less than or equal to 21 mm and decreases less than 50% during inspiration; therefore the estimated right atrial pressure is intermediate (~8 mmHg).Mitral ValveMitral valve structure is normal. Trace transvalvular regurgitation.Tricuspi d ValveTricuspid valve structure is normal. Mild transvalvular regurgitation. Right ventricular systolic pressure is 30-35 mmHg.Aortic ValveAortic valve structure is normal. No transvalvular regurgitation. No hemodynamically significant .Pulmonic ValveNot well visualized. No transvalvular regurgitation.Ascendin g AortaNormal sized aortic root.PericardiumEviden ce of epicardial fat. No pericardial effusion.Study DetailsStudy quality was adequate. A complete echocardiogram was performed using 2D, color flow Doppler and spectral Doppler. Saline contrast was performed. [facility] GLUCOSE (AUTOMATED)2023-08-24 18:27:55* Test Item Value Reference Range Interpretation Comme nts POCT GLU (test code = 3757788692) 200 mg/dL 70-110 H Lab Interpretation (test cod e = 88869-9) Abnormal [facility] [id number] 15:44:59 MR STROKE BRAIN WO CONTRAST COMPARISON: Head CT 08/23/2023. HISTORY: Neuro deficit, acute, stroke suspected S/SX, Dx: Stroke TECHNIQUE: Multiplanar multi sequential MRI of the brain without IVcontrast. FINDINGS: The ventricles and cerebral sulci are normal in caliber and configuration.No midline shift, hydrocephalus or pathological extra-axial fluidcollection is present. The basal cisterns are unremarkable. A tiny focus of diffusion hyperintensity without signal dropout on ADC mapin the left posterior periventricular white matter likely represents asubacute to chronic infarct (series 12 image 49). Scattered white matterT2/FLAIR hyperintense foci are present, likely sequelae of mild chronicmicrovascular ischemic disease. Focal small remote infarction with gliosisin the left occipital lobe. No abnormal gradient blooming. The T2 flow voids for the major intracranial vessels are unremarkable. Noabnormal fluid signal is present in the mastoid air cells or paranasal airsinuses.[facility] 1 [id number] 15:12:03EXAM: XR CHEST 1 VW COMPARISON: 10/25/2017 [facility]24 14:39:53* Test Item Value Reference Range Interpretation Comme nts POCT GLU (test code = 8227097631) 234 mg/dL 70-110 H Lab Interpretation (test cod e = 21488-4) Abnormal [facility] HospitalFasting Lipd Panel (36748)(TOTAL CHOLESTEROL, TRIGLYCERIDES, HDL)2023-08-24 12:58:59* Test Item Value Reference Range Interpretation Comme nts CHOL (test code = 6806977470) 175 mg/dL 120-200 HDL (test code = 1805996792) 35 mg/dL >=50 L HDLC RATIO (test code = 8380595121) 5.0 <=4.5 H TRIG (test code = 5985155451) 228 mg/dL 30-170 H LDL CHOL (test code = 84515-8) 94 mg/dL <=160 VLDL (test code = 8096897928) 46 mg/dL 5-60 Lab Interpretation (test cod e = 37581-9) Abnormal [facility] [id number] 23:25:44CT STROKE ANGIOGRAM HEAD, CT STROKE ANGIOGRAM NECK PROVIDED INDICATION: 58 years-old Female; Neuro deficit, acute, strokesuspected Rad: please obtain POCT creatinine prior to CTA head/neck. COMPARISON: Same day CT head, CT head dated 04/14/2019 TECHNIQUE: CT angiography of the head and neck was performed after theadministration of IV contrast with MIPS, coronal and sagittalreconstructions. Vascular measurements of stenosis were made according tothe NASCET criteria. FINDINGS: CTA HEAD: Bilateral intradural vertebral arteries are patent. The basilar artery isnormal in caliber. The superior cerebe llar arteries are unremarkable.Occlusion of left PEST CONTROL PILOT distal P2 segment (11; 111). The right posteriorcerebral artery is unremarkable. Bilateral intradural internal carotid arteries are patent. Atherosclerosisof bilateral carotid siphon without flow-limiting stenosis. The anterior and middle cerebral arteries are unremarkable. An anteriorcommunicating artery is visualized. There is no aneurysm or vascular malformation. Dural venous sinuses are patent. CTA NECK: Classic three vessel branching anatomy of the aortic arch. There isatherosclerotic plaques of the aortic arch result in no significant luminalnarrowing or arch vessel origin stenosis. The innominate and bilateralsubclavian arteries are patent. Atherosclerosis of the bilateral carotid bulb/proximal ICA, predominantlysoft plaque, mildto moderate stenosis on the right and mild stenosis onthe left. Origin of bilateral vertebral arteries are patent. The vertebral arteriesare patent throughout their course up to the vertebrobasilar junction.[facility] [id number] 23:25:44CT STROKE ANGIOGRAM HEAD, CT STROKE ANGIOGRAM NECK PROVIDED INDICATION: 58 years-old Female; Neuro deficit, acute, strokesuspected Rad: please obtain POCT creatinine prior to CTA head/neck. COMPARISON: Same day CT head, CT head dated 04/14/2019 TECHNIQUE: CT angiography of the head and neck was performed after theadministration of IV contrast with MIPS, coronal and sagittalreconstructions. Vascular measurements of stenosis were made according tothe NASCET criteria. FINDINGS: CTA HEAD: Bilateral i ntradural vertebral arteries are patent. The basilar artery isnormal in caliber. The superior cerebellar arteries are unremarkable.Occlusion of left PEST CONTROL PILOT distal P2 segment (11; 111). The right posteriorcerebral artery is unremarkable. Bilateral intradural internal carotid arteries are patent. Atherosclerosisof bilateral carotid siphon without flow-limiting stenosis. The anterior and middle cerebral arteries are unremarkable. An anteriorcommunicating artery is visualized. There is no aneurysm or vascular malformation. Dural venous sinuses are patent. CTA NECK: Classic three vessel branching anatomy of the aortic arch. There isatherosclerotic plaques of the aortic arch result in no significant luminalnarrowing or arch vessel origin stenosis. The innominate and bilateralsubclavian arteries are patent. Atherosclerosis of the bilateral carotid bulb/proximal ICA, predominantlysoft plaque, mildto moderate stenosis on the right and mild stenosis onthe left. Origin of bilateral vertebral arteries are patent. The vertebral arteriesare patent throughout their course up to the vertebrobasilar junction.[facility] [id number] 22:32:18CT STROKE HEAD WO CONTRAST HISTORY: Neuro deficit, acute, stroke suspected TECHNIQUE: Axial CT of the head was performed and reconstructed at 5 mm intervals.Coronal and sagittal reformatted images were generated. COMPARISON: ?CT head 04/14/2019 FINDINGS: No intracranial abnormality such as hemorrhage, edema, mass-effect, midlineshift, or extra axial fluid collection is appreciated. The reese-whitematter differentiation is preserved. The ventricles, sulci, and basal cisterns are within normal limits. Nohydrocephalus is seen. The calvarium and skull base are intact. ?The visualized paranasal sinusesand mastoid air cells are clear.[facility] Glucose (Age >30 Days) - Code [id number] 21:55:00* Test Item Value Reference Range Interpretation Comme nts POCT Glu (age>30days) (test code = 3342) 70-110 see poct result Lab Interpretation (test cod e = 47611-1) Normal [facility] GLUCOSE (AUTOMATED)2023-08-23 21:46:39* Test Item Value Reference Range Interpretation Comme nts POCT GLU (test code = 7582966730) 239 mg/dL 70-110 H Lab Interpretation (test cod e = 68668-3) [facility] [id number] 19:33:00Melany Guardado MD ? ? 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 TECHNICIAN failure or compromise ?Critical care was time spent personally by me on the following activities: ?Blood draw for specimens, development of treatment plan with patient or surrogate, discussions with consultants, evaluation of patient's response to treatment, examination of patient,interpretation of cardiac output measurements, ordering and performing treatments and interventions, ordering and review of laboratory studies, ordering and review of radiographic studies, pulse oximetry and re-evaluation of patient's condition ?I assumed direction of critical care for this patientfrom another provider in my specialty: no ? ?Care discussed with: accepting provider at another facility ?[facility] CHEST PULMONARY [id number] 04:40:24Exam: CT Angiography Chest With Contrast, 08/20/2023 6:30 PM. Ordering Physician: LC HERNANDEZ. History: PE suspected, high pretest prob . Comparison: None. Technique: CT angiography chest was performed with intravenous contrast. 3DMIP images were rendered. CT was performed according to ALARA (As Low AsReasonably Achievable). Technical Quality: Adequate. Findings: Lower neck: The visualized t hyroid is unremarkable. No lymphadenopathy. Pulmonary Arteries: There is no evidence of pulmonary embolus. Centralpulmonary arteries are normal in caliber. ? Pulmonary: Diffuse groundglass opacities in the left greater than rightlower lobes and scattered in the upper lobes. Scattered sub-6 mm pulmonarynodules. Multiple thin-walled cyst intraparenchymal and peripheral. Thereis no pleural effusion.?Central airways are patent. Cardiomediastinal: The heart size is normal. There is no pericardialeffusion. Thoracic aorta is normal in caliber. Great vessels areunremarkable. Prominent right hilar node. Upper Abdomen: No acute finding in the visualized portions of the upperabdomen. Osseous: No acute osseous finding.[facility] WITH [id number] 23:39:09* Test Item Value Reference Range Interpretation Comme nts WBC (test code = 6690-2) 13.38 See_Comment H [Automated VISup] The system which generated this result transmitted reference range: 4.30 - 11.10 10*3/?L. The reference range was not used to interpret this result as normal/abnormal. RBC (test code = 789-8) 5.09 See_Comment [Automated VISup] The system which generated this result transmitted reference range: 3.93 - 5.25 10*6/?L. The reference range was not used to interpret this result as normal/abnormal. HGB (test code = 718-7) 11.0 g/dL 11.6-15.0 L HCT (test code = 4544-3) 37.6 % 35.7-45.2 MCV (test code = 787-2) 73.9 fL 80.6-95.5 L MCH (test code = 785-6) 21.6 pg 25.9-32.8 L MCHC (test code = 786-4) 29.3 g/dL 31.6-35.1 L RDW-SD (test code = 29993-1) 59.2 fL 39.0-49.9 H RDW-CV (test code = 788-0) 23.4 % 12.0-15.5 H PLT (test code = 777-3) 430 See_Comment H [Automated messa ge] The system which generated this result transmitted reference range: 166 - 358 10*3/?L. The reference range was not used to interpret this result as normal/abnormal. MPV (test code = 48526-4) 11.0 fL 9.5-12.9 IPF % (test code = 2517809220) 10.6 % 1.3-7.7 H Platelet count measured by fluorescence method. NRBC/100 WBC (test code = 8759303331) 0.0 See_Comment [Automated [employer] ssage] The system which generated this result transmitted reference range: 0.0 - 10.0 /100 WBCs. The reference range was not used to interpret this result as normal/abnormal. NRBC x10^3 (test code = 4558351604) See_Comment [Automated 1calendara ge] The system which generated this result transmitted reference range: 10*3/?L. The reference range was not used to interpret this result as normal/abnormal. GRAN MAT (NEUT) % (test code = 770-8) 62.6 % IMM GRAN % (test code = 6109604815) 0.40 % LYMPH % (test code = 736-9) 29.4 % MONO % (test code = 5905-5) 6.2 % EOS % (test code = 713-8) 1.0 % BASO % (test code = 706-2) 0.4 % GRAN MAT x10^3(ANC) (test code = 4337432884) 8.38 10*3/uL 1.88-7.09 H IMM GRAN x10^3 (test code = 6795980664) 0.05 10*3/uL 0.00-0.06 LYMPH x10^3 (test code = 731-0) 3.93 10*3/uL 1.32-3.29 H MONO x10^3 (test code = 742-7) 0.83 10*3/uL 0.33-0.92 EOS x10^3 (test code = 711-2) 0.13 10*3/uL 0.03-0.39 BASO x10^3 (test code = 704-7) 0.06 10*3/uL 0.01-0.07 Lab Interpretation (test code = 90342-7) Abnormal [facility]. METABOLIC PANEL (75404)2023-08-20 23:29:30* Test Item Value Reference Range Interpretation Comme nts NA (test code = 7020174052) 139 mmol/L 135-145 K (test code = 4300567413) 4.7 mmol/L 3.5-5.0 CL (test code = 0486630764) 105 mmol/L 98-108 CO2 TOTAL (test code = 7359625278) 23 mmol/L 23-31 AGAP (test code = 2601866673) 11 2-16 BUN (test code = 6084181978) 19 mg/dL 7-23 GLUCOSE (test code = 9892259779) 211 mg/dL 70-110 H CREATININE (test code = 2086103739) 0.48 mg/dL 0.50-1.04 L TOTAL BILI (test code = 5912472622) 0.6 mg/dL 0.1-1.1 CALCIUM (test code = 4602237431) 9.2 mg/dL 8.6-10.6 T PROTEIN (test code = 1198287757) 8.0 g/dL 6.3-8.2 ALBUMIN (test code = 0196215245) 4.5 g/dL 3.5-5.0 ALK PHOS (test code = 4241608128) 105 U/L 34-122 ALTv (test code = 1742-6) 22 U/L 5-35 AST(SGOT) (test code = 4698039305) 39 U/L 13-40 eGFR (test code = 63730-9) 108.6 mL/min/1.73m2 CKD-EPI eGFR (2020). Assuming creatinine has been stable day-to-day for at least three months, the eGFR indicates Category G1 (>= 90 mL/min/1.73 m2) Lab Interpretation (test code = 68670-1) [facility]normal [facility]:29:09* Test Item Value Reference Range Interpretation Comme nts LIPASE (test code = 5617675252) 54 U/L 0-220 Lab Interpretation (test cod e = 10293-6) Normal [facility] METABOLIC PANEL (34194)2022-02-17 15:59:12* Test Item Value Reference Range Interpretation Comme nts NA (test code = 7599586199) 140 mmol/L 135-145 K (test code = 4252524177) 4.6 mmol/L 3.5-5 CL (test code = 8898647335) 112 mmol/L 98-108 H CO2 TOTAL (test code = 6697881893) 24 mmol/L 23-31 AGAP (test code = 6575287360) 2-16 BUN (test code = 6167119239) 16 mg/dL 7-23 GLUCOSE (test code = 6512080057) 184 mg/dL 70-110 H CREATININE (test code = 4245722850) 0.54 mg/dL 0.5-1.04 TOTAL BILI (test code = 5411933801) 0.3 mg/dL 0.1-1.1 CALCIUM (test code = 5864614954) 8.9 mg/dL 8.6-10.6 T PROTEIN (test code = 6891937407) 6.4 g/dL 6.3-8.2 ALBUMIN (test code = 4787609464) 3.9 g/dL 3.5-5 ALK PHOS (test code = 2182814045) 100 U/L 34-122 ALTv (test code = 1742-6) 16 U/L 5-35 AST(SGOT) (test code = 1850344690) 18 U/L 13-40 eGFR (test code = 1251046050) mL/min/1.73m2 BENIGNO (test code = BENIGNO) Association of Glomerular Filtration Rate (GFR) and Staging of Kidney Disease* + --+ --+ ------+| GFR (mL/min/1.73 m2) ?| With Kidney Damage ?| ?Without Kidney Damage+ --------+ --------+ +| ?>90 ?| ?Stage one ?| ? Normal ?+ ---+ ---+ -------+| ?60-89 ?| ?Stage two ?| ? Decreased GFR ? + --+ --+ ------+| ?30-59 ?| ?Stage three ?| ? Stage three ? + --+ --+ ------+| ?15-29 ?| ?Stage four ? | ? Stage four ?+ ---+ ---+ -------+| ?<15 (or dialysis) ? ?| ?Stage five ? | ? Stage five ?+ ---+ ---+ -------+ *Each stage assumes the associated GFR level has been in effect for at least three months. ?Stages 1 to 5, with or without kidney disease, indicate chronic kidney disease. Notes: Determination of stages one and two (with eGFR >59mL/min/1.73 m2) requires estimation of kidney damage for at least three months as defined by structural or functional abnormalities of the kidney, manifested by either:Pathological abnormalities or Markers of kidney damage (including abnormalities in the composition of the blood or urine or abnormalities in imaging tests). Lab Interpretation (test code = 46040-7) Abnormal [facility]2022-02-17 15:47:31* Test Item Value Reference Range Interpretation Comme [facility] POCT GLU (test code = 8782445919) 185 mg/dL 70-110 H Lab Interpretation (test cod e = 07832-7) Abnormal [facility] WITH [id number] 15:47:10* Test Item Value Reference Range Interpretation Comme [facility] WBC (test code = 6690-2) See_Comment [Automated 1calendara [employer]] The system which generated this result transmitted reference range: 4.30 - 11.10 10*3/?L. The reference range was not used to interpret this result as normal/abnormal. RBC (test code = 789-8) See_Comment [Automated 1calendara [employer]] The system which generated this result transmitted reference range: 3.93 - 5.25 10*6/?L. The reference range was not used to interpret this result as normal/abnormal. HGB (test code = 718-7) 11.9 g/dL 11.6-15 HCT (test code = 4544-3) 37.1 % 35.7-45.2 MCV (test code = 787-2) 84.7 fL 80.6-95.5 MCH (test code = 785-6) 27.2 pg 25.9-32.8 MCHC (test code = 786-4) 32.1 g/dL 31.6-35.1 RDW-SD (test code = 88081-3) 47.4 fL 39-49.9 RDW-CV (test code = 788-0) 15.5 % 12-15.5 PLT (test code = 777-3) See_Comment [Automated messa ge] The system which generated this result transmitted reference range: 166 - 358 10*3/?L. The reference range was not used to interpret this result as normal/abnormal. MPV (test code = 13784-7) 11.8 fL 9.5-12.9 NRBC/100 WBC (test code = 5933104140) See_Comment [Automated me ssage] The system which generated this result transmitted reference range: 0.0 - 10.0 /100 WBCs. The reference range was not used to interpret this result as normal/abnormal. NRBC x10^3 (test code = 1633416043) See_Comment [Automated me ssage] The system which generated this result transmitted reference range: 10*3/?L. The reference range was not used to interpret this result as normal/abnormal. GRAN MAT (NEUT) % (test code = 770-8) 57.4 % IMM GRAN % (test code = 3088755551) 0.30 % LYMPH % (test code = 736-9) 33.2 % MONO % (test code = 5905-5) 5.8 % EOS % (test code = 713-8) 2.7 % BASO % (test code = 706-2) 0.6 % GRAN MAT x10^3(ANC) (test code = 0860654342) 5.13 10*3/uL 1.88-7.09 IMM GRAN x10^3 (test code = 2962409612) 0.03 10*3/uL 0-0.06 LYMPH x10^3 (test code = 731-0) 2.97 10*3/uL 1.32-3.29 MONO x10^3 (test code = 742-7) 0.52 10*3/uL 0.33-0.92 EOS x10^3 (test code = 711-2) 0.24 10*3/uL 0.03-0.39 BASO x10^3 (test code = 704-7) 0.05 10*3/uL 0.01-0.07 [facility]dipstick) panel - Urine 2020-08-29 13:34:00* Test Item Value Reference Range Interpretation Comme nts Leukocytes (test code = Leukocytes) Negative Nitrite (test code = Nitrite) negative Urobilinogen (test code = Urobilinogen) .2 Protein (test code = Protein) Negative pH (test code = pH) 5.5 Blood (test code = Blood) Negative Specific Roosevelt (test code = Specific Roosevelt) 1.025 Ketone (test code = Ketone) Trace Bilirubin (test code = Bilirubin) Small Glucose (test code = Glucose) 2000+ Appearance (test code = Appearance) Clear Color (test code = Color) Pale Yellow [facility] - Urine 2020-08-29 13:34:00* Test Item Value Reference Range Interpretation Comme nts Leukocytes (test code = Leukocytes) Negative Nitrite (test code = Nitrite) negative Urobilinogen (test code = Urobilinogen) .2 Protein (test code = Protein) Negative pH (test code = pH) 5.5 Blood (test code = Blood) Negative Specific Roosevelt (test code = Specific Roosevelt) 1.025 Ketone (test code = Ketone) Trace Bilirubin (test code = Bilirubin) Small Glucose (test code = Glucose) 2000+ Appearance (test code = Appearance) Clear Color (test code = Color) Pale Yellow [facility] panel - Urine 2020-08-29 13:34:00* Test Item Value Reference Range Interpretation Comme nts Leukocytes (test code = Leukocytes) Negative Nitrite (test code = Nitrite) negative Urobilinogen (test code = Urobilinogen) .2 Protein (test code = Protein) Negative pH (test code = pH) 5.5 Blood (test code = Blood) Negative Specific Roosevelt (test code = Specific Roosevelt) 1.025 Ketone (test code = Ketone) Trace Bilirubin (test code = Bilirubin) Small Glucose (test code = Glucose) 2000+ Appearance (test code = Appearance) Clear Color (test code = Color) Pale Yellow [facility]Mass/volume] in Capillary blood 2020-08-29 13:33:00* Test Item Value Reference Range Interpretation Comme nts Blood Glucose: mg/dl (test c ode = Blood Glucose: mg/dl) 291 [facility] in Capillary blood 2020-08-29 13:33:00* Test Item Value Reference Range Interpretation Comme nts Blood Glucose: mg/dl (test c ode = Blood Glucose: mg/dl) 291 [facility] [Mass/volume] in Capillary blood 2020-08-29 13:33:00* Test Item Value Reference Range Interpretation Comme nts Blood Glucose: mg/dl (test c ode = Blood Glucose: mg/dl) 291 [facility]dipstick) panel - Urine 2020-08-13 15:54:00* Test Item Value Reference Range Interpretation Comme nts Leukocytes (test code = Leukocytes) Negative Nitrite (test code = Nitrite) negative Urobilinogen (test code = Urobilinogen) .2 Protein (test code = Protein) Negative pH (test code = pH) 5.5 Blood (test code = Blood) Non-Hemolyzed: Trace Specific Roosevelt (test code = Specific Roosevelt) 1.015 Ketone (test code = Ketone) Negative Bilirubin (test code = Bilirubin) Negative Glucose (test code = Glucose) 2000+ Appearance (test code = Appearance) Clear Color (test code = Color) Pale Yellow [facility]dipstick) panel - Urine 2020-08-13 15:54:00* Test Item Value Reference Range Interpretation Comme nts Leukocytes (test code = Leukocytes) Negative Nitrite (test code = Nitrite) negative Urobilinogen (test code = Urobilinogen) .2 Protein (test code = Protein) Negative pH (test code = pH) 5.5 Blood (test code = Blood) Non-Hemolyzed: Trace Specific Roosevelt (test code = Specific Roosevelt) 1.015 Ketone (test code = Ketone) Negative Bilirubin (test code = Bilirubin) Negative Glucose (test code = Glucose) 2000+ Appearance (test code = Appearance) Clear Color (test code = Color) Pale Yellow [facility] HospitalTROPONIN [id number] 17:10:00* Test Item Value Reference Range Interpretation Comme nts TROPONIN I (test code = 2652434510) 0.011 ng/mL See_Comment [Automated message] The system which generated this result transmitted reference range: <=0.034. The reference range was not used to interpret this result as normal/abnormal. BENIGNO (test code = BENIGNO) Equal or Less than 0.034 ng/ml---Normal?Not e: Cardiac troponin begins to rise 3-4 hours after the onset of ischemia. Repeat in 4-6 hours if the sample was drawn within 3-4 hours of the onset of the symptom and found normal. Between 0.035 and 0.120 ng/mL--- Borderline. Questionable myocardial injury or necrosis?Note: Serial measurement may be necessary to confirm or exclude the diagnosis of myocardial injury or necrosis; Clinical correlation (symptoms, EKGs, imaging studies, and others) required; Repeat in 4-6 hours if clinically indicated.? Equal or Higher than 0.121 ng/mL---Abnormal. Myocardial Injury or Necrosis Likely? Biotin has been reported to cause a negative bias, interpret results relative to patient's use of biotin.? ? Lab Interpretation (test code = 87934-8) Normal [facility]. METABOLIC PANEL (92417)2019-04-14 16:59:00* Test Item Value Reference Range Interpretation Comme nts NA (test code = 0086674234) 144 mmol/L 135-145 K (test code = 2538890848) 4.8 mmol/L 3.5-5 CL (test code = 7781547025) 108 mmol/L 98-108 CO2 TOTAL (test code = 3571333554) 23 mmol/L 23-31 AGAP (test code = 9552137426) 2-16 BUN (test code = 5199610008) 16 mg/dL 7-23 GLUCOSE (test code = 4357228612) 176 mg/dL 70-110 H CREATININE (test code = 2485751284) 0.42 mg/dL 0.5-1.04 L TOTAL BILI (test code = 3828238021) 0.6 mg/dL 0.1-1.1 CALCIUM (test code = 6621018417) 9.7 mg/dL 8.6-10.6 T PROTEIN (test code = 6033511029) 8.0 g/dL 6.3-8.2 ALBUMIN (test code = 8635234853) 4.8 g/dL 3.5-5 ALK PHOS (test code = 1793389945) 140 U/L 34-122 H ALT(SGPT) (test code = 0399211692) 28 U/L 9-51 AST(SGOT) (test code = 4175583440) 29 U/L 13-40 eGFR Calculation (Non-) (test code = 9611574289) mL/min/1.73m2 eGFR Calculation () (test code = 8445218098) mL/min/1.73m2 BENIGNO (test code = BENIGNO) Association of Glomerular Filtration Rate (GFR) and Staging of Kidney Disease*+ + + +| GFR (mL/min/1.73 m2)?| With Kidney Damage?|?Without Kidney Damage+ --------+ --------+ +|?>90?|?S tage one?|? Normal?+ ---------+ ---------+ +|?60-89? |?Stage two?|? Decreased GFR? + --+ --+ ------+|?30-59?|?Stage three?|? Stage three? + --+ --+ ------+|?15-29?|?Stage four? |? Stage four?+ -------+ -------+ +|?<15 (or dialysis)?|?Stage five? |? Stage five?+ -------+ -------+ +*Each stage assumes the associated GFR level has been in effect for at least three months.?Stages 1 to 5, with or without kidney disease, indicate chronic kidney disease.Notes: Determination of stages one and two (with eGFR >59mL/min/1.73 m2) requires estimation of kidney damage for at least three months as defined by structural or functional abnormalities of the kidney, manifested by either:Pathological abnormalities or Markers of kidney damage (including abnormalities in the composition of the blood or urine or abnormalities in imaging tests). Lab Interpretation (test code = 47546-0) Abnormal [facility] HospitalPROTHROMBIN TIME / [id number] 15:49:00* Test Item Value Reference Range Interpretation Comme nts PROTIME PATIENT (test code = 5964-2) See_Comment [Automated VISup] The system which generated this result transmitted reference range: 12.0 - 14.7 Seconds. The reference range was not used to interpret this result as normal/abnormal. INR (test code = 6301-6) Normal INR <1.1; Warfarin Therapeutic range 2.0 to 3.0 or 2.5 to 3.5, depending upon the indications. Lab Interpretation (test code = 52762-7) Normal [facility] [id number] 15:44:16No acute findings. * * * * * * * * ORIGINAL REPORT * * * * * * * *HISTORY:Headache, chronic, neuro deficit TECHNIQUE: Noncontrast head CT was performed. COMPARISON:12/21/2018 FINDINGS: The ventricles and sulci are appropriate for patient's age. There is no midline shift. The basal cisterns are preserved. No largevascular territory infarction, intracranial hemorrhage or mass effect isseen. The extracranial tissues demonstrate no acute findings. [facility], Radiant Results Inft User - 04/14/2019 10:44 AM CDT* * * * * * * * ORIGINAL REPORT * * * * * * * *HISTORY:Headache, chronic, neuro deficit TECHNIQUE: Noncontrast head CT was performed.COMPARISON:12/21/2018FINDINGS:The ventricles and sulci are appro priate for patient's age.There is no midline shift. The basal cisterns are preserved. No largevascular territory infarction, intracranial hemorrhage or mass effect isseen.The extracranial tissues demonstrate no acute findings.IMPRESSIONNo acute findings.[facility] HospitalCB WITH [id number] 15:34:00* Test Item Value Reference Range Interpretation Comme nts WBC (test code = 6690-2) See_Comment [Automated VISup] The system which generated this result transmitted reference range: 4.30 - 11.10 10*3/?L. The reference range was not used to interpret this result as normal/abnormal. RBC (test code = 789-8) See_Comment H [Automated VISup] The system which generated this result transmitted reference range: 3.93 - 5.25 10*6/?L. The reference range was not used to interpret this result as normal/abnormal. HGB (test code = 718-7) 14.9 g/dL 11.6-15 HCT (test code = 4544-3) 47.4 % 35.7-45.2 H MCV (test code = 787-2) 87.6 fL 80.6-95.5 MCH (test code = 785-6) 27.5 pg 25.9-32.8 MCHC (test code = 786-4) 31.4 g/dL 31.6-35.1 L RDW-SD (test code = 93741-1) 44.6 fL 39-49.9 RDW-CV (test code = 788-0) 14.0 % 12-15.5 PLT (test code = 777-3) See_Comment [Automated messa ge] The system which generated this result transmitted reference range: 166 - 358 10*3/?L. The reference range was not used to interpret this result as normal/abnormal. MPV (test code = 37582-9) 12.2 fL 9.5-12.9 NRBC/100 WBC (test code = 5756148501) See_Comment [Automated me ssage] The system which generated this result transmitted reference range: 0.0 - 10.0 /100 WBCs. The reference range was not used to interpret this result as normal/abnormal. NRBC x10^3 (test code = 6696734400) <0.01 See_Comment [Automated messa ge] The system which generated this result transmitted reference range: 10*3/?L. The reference range was not used to interpret this result as normal/abnormal. GRAN MAT (NEUT) % (test code = 770-8) 59.8 % IMM GRAN % (test code = 3278699421) 0.50 % LYMPH % (test code = 736-9) 34.2 % MONO % (test code = 5905-5) 3.9 % EOS % (test code = 713-8) 1.1 % BASO % (test code = 706-2) 0.5 % GRAN MAT x10^3(ANC) (test code = 6954423186) 5.93 10*3/uL 1.88-7.09 IMM GRAN x10^3 (test code = 9068432539) 0.05 10*3/uL 0-0.06 LYMPH x10^3 (test code = 731-0) 3.40 10*3/uL 1.32-3.29 H MONO x10^3 (test code = 742-7) 0.39 10*3/uL 0.33-0.92 EOS x10^3 (test code = 711-2) 0.11 10*3/uL 0.03-0.39 BASO x10^3 (test code = 704-7) 0.05 10*3/uL 0.01-0.07 Lab Interpretation (test code = 91047-8) Abnormal [facility] GLUCOSE (AUTOMATED)2019-04-14 15:00:00* Test Item Value Reference Range Interpretation Comme nts POCT GLU (test code = 3056014099) 175 mg/dL 70-110 H Lab Interpretation (test cod e = 84067-4) Abnormal [facility] Consult Notes Date/Time Note Provider Source 2023-08-24 14:14:54 GRh2r9lhmKs/9S94q85b l2De3pUsOUoausQE+2H6/k 6UMO+VJzP48bInA8nkQFAE3491-77-63Z14:14:54A ssociated Order(s): CONSULT SPEECH Speech-Language [id number] consult received, chart reviewed. Patient passed primary dysphagia screen and has been ordered a regular textured diet. No s/sx of dysphagia reported by patient or nursing. No dysarthria, aphasia, or cognitive-communication deficits reported by patient or observed by MANAGER POWER. No further speech pathology needs indicated at this time; service is signing off. Please re-consult if further needs are indicated.No charge for this screening service d/t no apparent needs/evaluation deferred.Debbie Spencer MA, OOL-NUOUabjyf-Joznummz PathologistOffice [phone]: [phone] btdvRI7658-46-99G86:15:44Consult noteTXT1.2.840.222511.1.13.104.2.7.2.53441 9|[id number] for patient jyjn70059-0Htpcpcn noteLNNARRATIVEFormatted C-CDA narrative text[address] Gp[id number] AOTMKAVCKJEKYVOG4525-80-04D85:15:441.2.840 .608726.1.72.3.15|1.2.840.493081.1.13.104. 2.7.2.727879_[id number] [facility] 2023-08-24 11:35:59 aaiHVkRBS1czwfwe2L9t pW6PCr9QzuvG4qiPwqW+Hf K56d7DrTGzAPu/dOs3cPpW7087-92-48K61:35:59A ssociated Order(s): CONSULT EAP CONSULTANT-ADULT ARE MANAGEMENT PROGRESS NOTEReason for Consult - Please give recommendations and opinions on family primary decision maker and appropriate options for discharge destination.SFA completed 08/24/23 Patient uninsured patient sees TRAVEL WRITER at clinic [facility] in [place]. TRAVEL WRITER told patient to come to ER. DCP home with follow [place] Galan RNCare CoordinatorPRESBYTERIAN SANT[facility]-Care [email or web address]: [phone] 68098-9Rkpdwpd fjbgPF1834-22-27E34:36:08Consult noteTXT1.2.840.604760.1.13.104.2.7.2.42167 9|[id number] for patient pheb32639-8Rebayde noteLNNARRATIVEFormatted C-CDA narrative text[address] Pi[id number] XYETYQOADLFTEQRK7232-33-79H63:36:081.2.840 .379265.1.72.3.15|1.2.840.366695.1.13.104. 2.7.2.727879_[id number] [facility] 2023-08-24 10:58:00 KcMaQszRS73SxVS9saj6 djGljjlU5SfaztmhcUgRtP ApMj3AVOsmsPIRxVZR3+yl9482-72-31N52:58:00A ssociated Order(s): CONSULT ADULT OCCUPATIONAL THERAPY OT GENERAL EVALUATIONConsult received via [employer], EMR reviewed and evaluation completed 08/24/23. Patient referred to occupational therapy for evaluation and treatment secondary to left sided pain and weakness. Patient agreeable to participate in occupational therapy. The patient was seen in conjunction with Ishan Hennessy PT due to concerns for poor endurance and decreased tolerance for two separate therapy sessions. Billing for OT portion only.Discharge Recommendations:Therapy Needs and Potential:- Patient would benefit from continued skilled occupational therapy services to address: Decline in basic activities of daily living, Decline in instrumental activities of daily living, Decreased strength, Decreased range of motion, Decreased endurance, and Decreased coordination- Patient demonstrates good potential to improve and meet therapy goals with further skilled occupational therapy services.- Patient appears motivated to improve their B/IADLs and return to their previous level of function.- Patient demonstrates ability to tolerate at least 30-60 minutes of active participation in occupational therapy.- Patient able to follow commands: 1-step Yes, Multi-step Yes, Inconsistencies NoChallenges to Home Transition:- Requires physical assistance for IADLS- Requires supervision or verbal cues for BADLS- Requires supervision or verbal cues for IADLS- Limited caregiver availability- Increased risk of falls- Environmental barriers - combo tubEquipment Recommendations:Tub transfer bench and Grab barsPLAN OF CARE: At least 2x/weekPrecautions:Weight bearing status: NAGeneral: PPE Utilized: Gloves and Surgical mask and FallBracing: N/ACurrent Occupational Performance and/or Treatment:AM-PAC 6 Clicks (Raw Score 0=Dependent, 24=Independent; Low function Raw Score 0= Dependent, 32=Independent):Raw Score - Daily Activity: 19T-Scale Score - Daily Activity: 40.22Feeding: Independent, to eat breakfast while bed level with HOB ElevatedGrooming: Supervision, to complete standing grooming tasks without an assistive device using the R UE only; patient with supervision needed for dynamic sitting balance and for encouragement in using the L UE for tasks.UB Dressing: Minimal Assistance, to don gown around back while seated EOB; patient needed assistance with threading L UE through gown as appropriate;LB Dressing: Supervision, to don socks to TAYLOR LE while using figure four dressing technique; of note, patient utilized R UE only to don socksToilet Transfer: Supervision, using grab barsFunctional Mobility: supine -> sitting EOB using supervision. Scooting towards EOB with supervision. Sitting EOB -> standing w/ min assist. The patient ambulated to the bathroom and around unit as appropriate for completion of ADLs without an assistive device. Standing -> sitting in bedside chair w/ min assist. Cues given throughout for body mechanics, safety awareness, and deep breathing.Patient/caregiver educated on: Adaptive equipment , ADL training, AROM, Deep breathing, Energy conservation, Relaxation/breathing techniques, Role of OT, and Safety awarenessPatient left reclining in bedside chair with call rizvi in reach. TAYLOR LE elevated. Please, see full evaluation below for more detail.OT EVALUATION:58 year old female Admit date: 08/23/2023 Date of onset: 4Admit Diagnosis: Cerebrovascular accident (CVA), unspecified mechanism [I63.9]OT Diagnosis: Impaired BADL independence, Impaired IADL independence, Weakness, Decreased endurance, and Limited joint ROMPMH:Past Medical History:Diagnosis DateAbnormal uterine bleedingAnemiaBlood transfusion, without reported diagnosisAfter MVAFibrocystic breastMenstrual disorderTrauma 2008MVCPSH:Past Surgical History:Procedure Laterality DateBACK SURGERYBREAST SURGERYPAIN:Pain Location: left legPain rating before treatment: 5, After treatment: 7Pain Management: Reports taking pain medsOCCUPATIONAL ROLES/HOME ENVIRONMENT:Home environment: The patient lives in a single story home w/ one step for entry with her spouse.Bathroom access: YesBathroom setup: ComboOccupation(s): The patient reports she is unemployed at this time, but 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 care 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 is physically able to do so.Function prior to admission: Household ambulation, Community ambulation, Independent with BADLs, and Independent with IADLsSuspected ischemic or hemorraghic stroke patient: YES, Defer to PTEquipment prior to admission: NonePERFORMANCE SKILLS/FACTORS:UE Muscle Tone: bilateral WNLUE ROM: bilateral AROM WFL except L shoulder ROM limited; Patient with L shoulder flexion up to 90 degrees; L shoulder external rotation lacking 45 degrees; L shoulder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 unspecifiedCase discussed with: Kelly NeurologyBarriers & Social Determinants of Healthcare: noneLimitations to patient care and compliance: none.History, physical exam findings, results of visit, differential diagnosis, medication regimens and plan of future care have been considered. Additional MDM may be found in the ED course. Differential diagnosis considered and final disposition made based on information gathered during evaluation and may not be completely ruled out or specifically listed. Vital signs were rechecked before final disposition and determined to be stable.SzzqxtzmsGFQ-00-[id number]. Cerebrovascular accident (CVA), unspecified mechanism I63.92. Uncontrolled hypertension I103. Urinary tract infection without hematuria, site unspecified N39.0Disposition and ConditionED DispositionED DispositionTransfer - [facility]/ObsCondition--Comment--Patient's MedicationsSTART taking these medicationsNo medications on fileCONTINUE taking these medications which have NOT CHANGEDACETAMINOPHEN-CODEINE 300-30 MG TABLET Take 1 tablet by mouth every 4 (four) hours as needed for Pain (scale 7-10). Indications: acute painAMOXICILLIN-CLAVULANATE 875-125 MG PER TABLET Take 1 tablet by mouth every 12 (twelve) hours.AZITHROMYCIN 250 MG TABLET Take 2 tablets by mouth daily for 1 day, THEN 1 tablet daily for 4 days.IBUPROFEN 600 MG TABLET Take 1 tablet by mouth every 6 (six) hours as needed for Pain (scale 4-6).START taking Modified Medications as PrescribedNo medications on fileSTOP taking these medicationsNo medications on fileDragon Dictation Software is used frequently and may produce errors. Promptly contact for obvious discrepancies.Melany Guardado MD, FACEP, FAAEMAssistant Professor of Emergency and Internal MedicineGuthrie Corning Hospital#[id number] Guardado MD08/23/23 1858 64805-3Srzwzlgis Emergency department PhkaYJ3801-69-60U42:58:27[facility]ian Emergency department NoteTXT1.2.840.080387.1.13.104.2.7.2 .501317|[id number] for patient zbwd03161-8Knjpsqtek department NoteLNNARRATIVEFormatted C-CDA narrative text[id number] ZVRLPFEXTSGEXSZVSLRKCL0852-98-43Q18: 58:271.2.840.291532.1.72.3.15|1.2.84 0.875416.1.13.104.2.7.2.727879_20095 17953 [facility] 2023-08-20 23:23:24 9N/cZLEKUIqnxldvpxpz9/wKuKvzCK4oHMWF wKKg+xLla3HSkfJqoVJLo65lggv19680-89- 26T23:23:24 Pt discharged with diagnosis of breast pain, R, tachycardia, an multifocal pneumonia. Printed and verbal instructions reviewed with and given to patient. Prescriptions given x 3. Pt verbalized understanding of teaching, medications, and recommended follow-up. Denies questions or concerns at this time. Pt ambulatory at discharge. Appears in no apparent distress. No ataxia noted. Accompanied by family. 44422-5Esyolxthk department CtveWC3915-70-41Q46:24:13Emeprovidence [facility] department NoteTXT1.2.840.390723.1.13.104.2.7.2 .448139|[id number] for patient ipqz22113-6SpadGWHNDHRQRKYGsjucjuxw C-CDA narrative text[id number] MJVXTSKISDVAEUABITKJSA9672-38-99Z99: 24:131.2.840.651693.1.72.3.15|1.2.84 0.256650.1.13.104.2.7.2.727879_ 98167 [facility] 2023-08-20 23:17:03 3ZK7MAWj5QDlyUEe04vmQvizoyBKnxB020DD SqN/LZ1EJKQqFD2iBPYQl35I9p7F8406-36- 26T23:17:03 Pt not experiencing anymore itchiness. Denies SOB, swelling to airway, hives, or other anaphylactic response. 63566-5Dcjqsvgsu department WvslPP9125-03-05L08:18:16Emerwhite [facility] department NoteTXT1.2.840.019829.1.13.104.2.7.2 .718821|[id number] for patient ttec38648-7WmvqHFIYQAVOOVCGqhebhvkr C-CDA narrative text[id number] CXRCHPPBCCAPVXNYEEIWZQ8528-45-06X02: 18:161.2.840.061152.1.72.3.15|1.2.84 0.143156.1.13.104.2.7.2.727879_ [id number] [facility] 2023-08-20 22:50:00 aDd3487njx6/Pn2XMMn8llAbJmwMos7aLiti +oNshDaob6G9tJiT7f64UyEQIct61045-07- 26T22:50:00 Pt experiencing itchiness after Unasyn administration. 69924-8Wdftuilhf department VveeAG7232-52-94X05:16:00Emerwhite [facility] medical center department NoteTXT1.2.840.734257.1.13.104.2.7.2 .252764|[id number] for patient qloe82763-6JrqqDPNAMTFDMTAAhiogiklp C-CDA narrative text[id number] JJICHJDGBSPHUSVVCJUJTV7810-59-52I47: 16:001.2.840.352657.1.72.3.15|1.2.84 0.822124.1.13.104.2.7.2.727879_ 70710 [facility] 2023-08-20 19:13:37 qEDr+HzIKRzH8ws7EcHBWKgORfQ+F/nRl7bG PEs1jhu5g+ss38exuhm9zNYEoKQk3509-13- 26T19:13:37 [place] [address]-9Dwrusyuht department HmtyLH9594-05-82Y36:13:49Emeprovidence [facility] department NoteTXT1.2.840.139202.1.13.104.2.7.2 .324008|[id number] for patient bqek12270-7KhowEQYZLVAPBHHHfwnzekda C-CDA narrative [id number] M Cruz RNUT[id number] DMUQTSATEQYBZKCUZVEBHF7023-84-73A36: 13:491.2.840.438427.1.72.3.15|1.2.84 0.188238.1.13.104.2.7.2.727879_ 59155 Fernanda Conner RN [facility] 2023-08-20 16:10:07 qRVjz/e/8csa6bQMJ2ku16xwAI31JuFzy97F CwkY4Tn48tCViBsX1ppxlfT7dWrR6688-09- 26T16:10:07 Pt has hx of fibrocystic breast condition and states she is having a flareup. Has had approx 1 tbs of milky discharge. States "I just need yall to cut it open and get the crap out of it." Pt is anxious and tearful. 35654-1Tinxkdazz department Triage njcaVU1036-60-90C46:11:49Emerwhite [facility] center department Triage noteTXT1.2.840.818803.1.13.104.2.7.2 .282607|[id number] for patient dgef76699-3Vyitvyetj department NoteLNNARRATIVEFormatted C-CDA narrative text[address] Kg[id number] QAHHWBNTNZTJBFBALVJVQK4503-03-53G30: 11:491.2.840.976114.1.72.3.15|1.2.84 0.938311.1.13.104.2.7.2.727879_20092 19225 [facility]
[2023-09-01 01:23] LABS: SARS-CoV-2 Antigen Rapid Res Negative (Negative)
[2023-09-01 01:31] LABS: Absolute Lymphocytes (CBC) 1.3 K/uL (0.7-4.9); Lymphocytes % 9.3 % (15.3-44.8); MCV 70.3 fL (80-100); Platelets 307 thou/uL (152-406); RBC Red Blood Cell Count 4.69 M/uL (3.86-4.86)
[2023-09-01 01:32] LABS: Protime INR 1.26
[2023-09-01] MEDS ORDERED: ONDANSETRON 4 MG/2 ML VIAL ONE ×2 (01:44→05:26)
[2023-09-01] MEDS ORDERED: METOCLOPRAMIDE 10 MG/2mL INJ ONE (01:44)
[2023-09-01 01:47] LABS: Albumin 3.4 g/dL (3.4-5.0); Bilirubin Direct 0.1 mg/dL (0-0.2); Bilirubin Indirect, Calculated 0.4 mg/dL (0.2-0.8); Bilirubin Total 0.5 mg/dL (0.2-1.0); Magnesium 1.7 mg/dL (1.6-2.4); Potassium 3.7 mEq/L (3.5-5.1); Protein, Total 7.3 g/dL (6.4-8.2); Troponin High Sensitivity 5.6 pg/mL (<58.9)
[2023-09-01 02:19] LABS: Anisocytosis 2+; Blood Morphology Comment NOTED (NOT SEEN); Hypochromasia 1+; Platelet Estimate ADEQ; White Blood Cell Scan OK (OK)
[2023-09-01 02:34] LABS: C-Reactive Protein 53.5 mg/L (<3.00)
[2023-09-01] MEDS ORDERED: Levofloxacin 750mg IV 750 MG/150 ML BAG IV ONE (02:43)
[2023-09-01] MEDS ORDERED: VANCOMYCIN 1 GM/VIAL ONE (02:43)
[2023-09-01] MEDS ORDERED: NA CHLORIDE 0.9% 250 ML ONE (02:43)
--- NOTE | 2023-09-01 04:53 | ER ---
Nurse's Notes [facility] Name: Tennille Giordano Age: 58 yrs Sex: Female : 1965 Arrival Date: 08/31/2023 Time: 22:20 Bed 13 Private MD: Diagnosis: Muscle weakness (generalized);Generalized weakness, fever, headaches, shortness of breath, leukocytosis Presentation: 08/31 22:29 Chief complaint: Patient states: she started having a headache yesterday of which she ap3 rates to be a 8/10 on the pain scale. Coronavirus screen: Client presents with at least one sign or symptom that may indicate coronavirus-19. Ebola Screen: No symptoms or risks identified at this time. Initial Sepsis Screen: Does the patient meet any 2 criteria? HR > 90 bpm. No. Patient's initial sepsis screen is negative. Does the patient have a suspected source of infection? No. Patient's initial sepsis screen is negative. Risk Assessment: Do you want to hurt yourself or someone else? Patient reports no desire to harm self or others. Onset of symptoms was August 30, 2023. 22:29 Method Of Arrival: EMS: [facility] ap3 22:29 Acuity: GLENN 3 ap3 Triage Assessment: 22:31 Headache History: The patient has had previous headaches and this one is similar to ap3 previous episodes. General: Appears in no apparent distress. Behavior is calm, cooperative, appropriate for age, Reports chills for fever for feeling ill for fatigue for. Pain: Complains of pain in head Pain currently is 8 out of 10 on a pain scale. Pain began gradually, 1 day ago. Pain: Also complains of nausea. Neuro: Level of Consciousness is awake, alert, obeys commands, Oriented to person, place, time, situation, Appropriate for age Reports headache. Cardiovascular: Patient's skin is warm and dry. Respiratory: Airway is patent Respiratory effort is even, unlabored, Respiratory pattern is regular, symmetrical. Historical: - Allergies: 22:30 PENICILLINS; ap3 - PMHx: 22:30 Hypertensive disorder; Diabetes mellitus; Hypercholesterolemia; Hypothyroidism; ap3 - Immunization history:: Client reports receiving the 1st dose of the Covid vaccine, Flu vaccine is not up to date. - Social history:: Smoking status: Patient reports the use of cigarette tobacco products, smokes one-half pack cigarettes per day. - Family history:: not pertinent. Screenin:32 [facility] ED Fall Risk Assessment (Adult) History of falling in the last 3 months, ap3 including since admission No falls in past 3 months (0 pts). Abuse screen: Denies threats or abuse. Nutritional screening: No deficits noted. Tuberculosis screening: No symptoms or risk factors identified. Assessment: 09/01 02:05 General: Appears in no apparent distress. comfortable, well groomed, well developed, pf1 Behavior is calm, cooperative, appropriate for age, quiet. 02:05 Pain: Complains of pain in headache Pain currently is 8 out of 10 on a pain scale. pf1 Neuro: Level of Consciousness is awake, alert, obeys commands, Oriented to person, place, time, situation, Reports headache frontal area, occipital area, weakness in generalized. Cardiovascular: Reports nausea, vomiting, Capillary refill < 3 seconds Patient's skin is warm and dry. Respiratory: Airway is patent Respiratory effort is even, unlabored, Respiratory pattern is regular, symmetrical. GI: Abdomen is round non-distended, Bowel sounds present X 4 quads. Reports lower abdominal pain, nausea, vomiting. : No deficits noted. No signs and/or symptoms were reported regarding the genitourinary system. EENT: No deficits noted. No signs and/or symptoms were reported regarding the EENT system. 03:00 Reassessment: Patient appears in no apparent distress at this time. Patient and/or pf1 family updated on plan of care and expected duration. Pain level reassessed. Patient is alert, oriented x 3, equal unlabored respirations, skin warm/dry/pink. 04:00 Reassessment: Patient appears in no apparent distress at this time. Patient and/or pf1 family updated on plan of care and expected duration. Pain level reassessed. Patient is alert, oriented x 3, equal unlabored respirations, skin warm/dry/pink. 05:00 Reassessment: Patient appears in no apparent distress at this time. Patient and/or pf1 family updated on plan of care and expected duration. Pain level reassessed. Patient is alert, oriented x 3, equal unlabored respirations, skin warm/dry/pink. Patient states symptoms have improved. 08:00 Reassessment: SEE [facility] FOR CONTINUED CHARTING. db Vital Signs: 08/31 22:29 BP 145 / 60; Pulse 110; Resp 18; Temp 100.1; Pulse Ox 96% ; Weight 81.65 kg; Height 5 ap3 ft. 5 in. ; Pain 8/10; 09/01 02:10 BP 140 / 62; Pulse 103; Resp 18; Pulse Ox 98% ; Pain 8/10; pf1 03:30 BP 153 / 62; Pulse 105; Resp 16; Pulse Ox 98% on R/A; pf1 04:30 BP 142 / 65; Pulse 98; Resp 16; Temp 99(O); Pulse Ox 98% on R/A; Pain 8/10; pf1 02/ 22:29 Body Mass Index 29.95 (81.65 kg, 165.1 cm) ap3 02 22:29 Pain Scale: Adult ap3 09/01 02:10 Pain Scale: Adult pf1 04:30 Pain Scale: Adult pf1 Daisetta Coma Score: 04:51 Eye Response: spontaneous(4). Motor Response: obeys commands(6). Verbal Response: sp4 oriented(5). Total: 15. 05:26 Eye Response: spontaneous(4). Motor Response: obeys commands(6). Verbal Response: sp4 oriented(5). Total: 15. NIH Stroke Scale Scores: 05:26 NIHSS Score: 0 sp4 ED Course: 08/31 22:26 Patient arrived in ED. jj6 22:26 Ricardo Berg MD is Attending Physician. sp4 22:30 Triage completed. ap3 22:32 Arm band placed on right wrist. ap3 22:56 XRAY Chest (1 view) In Process Unspecified. EDMS 09/01 00:40 Influenza Screen (a \T\ B) Sent. rv1 00:40 SARS RAPID Sent. rv1 01:20 Basic Metabolic Panel Sent. rv1 01:20 CBC with Diff Sent. rv1 01:20 LFT's Sent. rv1 01:20 Magnesium Sent. rv1 01:20 NT PRO-BNP Sent. rv1 01:20 PT-INR Sent. rv1 01:20 Troponin HS Sent. rv1 02:50 First set of blood cultures drawn by me. jw7 03:05 Second set of blood cultures drawn by me. jw7 03:07 CT Chest, Abdomen, Pelvis - W/Contrast In Process Unspecified. EDMS 03:10 Blood Culture Adult (2) Sent. pf1 04:52 Donta Conley MD is Hospitalizing Provider. sp4 05:02 Blood Culture Adult (2) Sent. pf1 08:00 Provided Education on: ADMIT. db 10:26 Daisy Sharma, RN is Primary Nurse. db 16:23 Patient has correct armband on for positive identification. Side rails up X 1. db 16:23 No provider procedures requiring assistance completed. Patient admitted, IV remains in db place. Administered Medications: 01:50 Drug: Ondansetron IVP 4 mg IVP once; over 2 minutes Route: IVP; Site: left upper arm; cg 02:50 Follow up: Response: No adverse reaction; No change in condition; Nausea is decreased pf1 01:51 Drug: metoCLOPramide IVP 10 mg IVP once; over 1 to 2 minutes Route: IVP; Site: left cg upper arm; 02:50 Follow up: Response: No adverse reaction; Marked relief of symptoms; Nausea is decreasedpf1 03:22 Drug: LevaQUIN IVPB 750 mg IVPB once Route: IVPB; Site: right antecubital; pf1 04:32 Follow up: Response: No adverse reaction; Marked relief of symptoms; IV Status: pf1 Completed infusion 04:55 Drug: vancoMYCIN IVPB 1 grams IVPB once over 2 hrs Route: IVPB; Infused Over: 2 hrs; pf1 Site: right antecubital; 05:30 Drug: Ondansetron IVP 4 mg IVP once; over 2 minutes Route: IVP; Site: right upper arm; pf1 Medication: 08:00 VIS not applicable for this client. db Outcome: 04:53 Decision to Hospitalize by Provider. sp4 16:23 Admitted to Med/surg db 16:23 Condition: stable 16:23 Instructed on the need for admit, 16:52 Patient left the ED. bp NIH Stroke Scale - NIH Stroke Score Date: 09/01/2023 Time: 05:26 Total Score = 0 10. Dysarthria (speech clarity - read or repeat words) - 0(Normal) 11. Extinction and Inattention (visual/tactile/auditory/spatial/personal) - 0(No abnormality) 1a. Level of Consciousness (LOC) - 0(Alert) 1b. Level of Consciousness (LOC) (Month \T\ Age) - 0(Both) 1c. LOC Commands (Open \T\ Closes Eyes/Toy Consultant) - 0(Both) 2. Best Gaze (Lateral Gaze Paresis) - 0(Normal) 3. Visual Field Loss - 0(No visual loss) 4. Facial Palsy - 0(Normal) 5a. Left Arm: Motor (10-second hold) - 0(No drift) 5b. Right Arm: Motor (10-second hold) - 0(No drift) 6a. Left Leg: Motor (5-second hold - always test supine) - 0(No drift) 6b. Right Leg: Motor (5-second hold - always test supine) - 0(No drift) 7. Limb Ataxia (finger/nose \T\ heel/quintero - test with eyes open) - 0(Absent) 8. Sensory Loss (pinprick arms/legs/face) - 0(Normal) 9. Best Language: Aphasia (description/naming/reading) - 0(No aphasia) Initials: sp4 Signatures: Dispatcher [employer] EDLula Muhammad, RN Beny Cope, RN RN bp Polly Gonzalez RN RN ap3 Brooke Millan jj6 Manda Moses RN RN jw7 Daisy Sharma, RN Thi Royal RN RN pf1 Lorraine Lemon rv1 Ricardo Berg MD MD sp4
--- NOTE | 2023-09-01 04:54 | EDPHYS ---
Physician Documentation [facility] Name: Tennille Giordano Age: 58 yrs Sex: Female : 1965 Arrival Date: 08/31/2023 Time: 22:20 Bed 13 Private MD: ED Physician Ricardo Berg HPI: 08/31 23:21 This 58 yrs old Female presents to ER via EMS with complaints of Headache, sp4 Fever. 09/01 03:32 Patient with history of hypertensive disorder, diabetes, hypercholesterolemia and sp4 hypothyroidism also prior spinal fixation T to L-spine, presents with several weeks of feeling unwell. Patient states that 2 weeks ago she began feeling shortness of breath and generalized weakness also headaches and fevers, she was evaluated at [facility] and then subsequently transferred to [facility]. Patient states she was released from [facility] 1 week ago. She has not improved at home her headaches and generalized weakness became worse and patient presents here for further evaluation. . Historical: - Allergies: 08/31 22:30 PENICILLINS; ap3 - PMHx: 22:30 Hypertensive disorder; Diabetes mellitus; Hypercholesterolemia; Hypothyroidism; ap3 - Immunization history:: Client reports receiving the 1st dose of the Covid vaccine, Flu vaccine is not up to date. - Social history:: Smoking status: Patient reports the use of cigarette tobacco products, smokes one-half pack cigarettes per day. - Family history:: not pertinent. ROS: 09/01 03:32 Constitutional: Positive fever, positive headache, positive generalized weakness, sp4 positive shortness of breath All other systems are negative, Exam: 03:32 Constitutional: This is a well developed, well nourished patient who is awake, alert, sp4 and in no acute distress. Ill-appearing but nontoxic-appearing. Head/Face: Normocephalic, atraumatic. Eyes: Pupils equal round and reactive to light, extra-ocular motions intact. Lids and lashes normal. Conjunctiva and sclera are not injected. Cornea within normal limits. Periorbital areas with no swelling, redness, or edema. ENT: Nares patent. No nasal discharge, no septal abnormalities noted. Tympanic membranes are normal and external auditory canals are clear. Oropharynx with no redness, swelling, or masses, exudates, or evidence of obstruction, uvula midline. Mucous membranes moist. Neck: Trachea midline, no thyromegaly or masses palpated, and no cervical lymphadenopathy. Supple, full range of motion without nuchal rigidity, or vertebral point tenderness. Chest/axilla: Normal chest wall appearance and motion. Nontender with no deformity. No lesions are appreciated. Cardiovascular: Regular rate and rhythm with a normal S1 and S2. No gallops, murmurs, or rubs. Normal PMI, no JVD. No pulse deficits. Respiratory: Lungs have equal breath sounds bilaterally, clear to auscultation and percussion. No rales, rhonchi or wheezes noted. No increased work of breathing, no retractions or nasal flaring. Abdomen/GI: Soft, non-tender, with normal bowel sounds. No distension or tympany. No guarding or rebound. No evidence of tenderness throughout. Back: No spinal tenderness. No costovertebral tenderness. Skin: Warm, dry with normal turgor. Normal color with no rashes, no lesions, and no evidence of cellulitis. MS/ Extremity: Pulses equal, no cyanosis. Neurovascular intact. Full, normal range of motion. Neuro: Awake and alert, GCS 15, oriented to person, place, time, and situation. Cranial nerves II-XII grossly intact. Motor strength 5/5 in all extremities. Sensory grossly intact. Psych: Awake, alert, with orientation to person, place and time. Behavior, mood, and affect are within normal limits 05:26 ECG was reviewed by the Attending Physician. EKG time 0 518 sinus tachycardia at a rate sp4 of 115 otherwise normal Vital Signs: 08/31 22:29 BP 145 / 60; Pulse 110; Resp 18; Temp 100.1; Pulse Ox 96% ; Weight 81.65 kg; Height 5 ap3 ft. 5 in. ; Pain 8/10; 09/01 02:10 BP 140 / 62; Pulse 103; Resp 18; Pulse Ox 98% ; Pain 8/10; pf1 03:30 BP 153 / 62; Pulse 105; Resp 16; Pulse Ox 98% on R/A; pf1 04:30 BP 142 / 65; Pulse 98; Resp 16; Temp 99(O); Pulse Ox 98% on R/A; Pain 8/10; pf1 08/31 22:29 Body Mass Index 29.95 (81.65 kg, 165.1 cm) ap3 08/31 22:29 Pain Scale: Adult ap3 09/01 02:10 Pain Scale: Adult pf1 04:30 Pain Scale: Adult pf1 NIH Stroke Scale Scores: 05:26 NIHSS Score: 0 sp4 Coulter Coma Score: 04:51 Eye Response: spontaneous(4). Motor Response: obeys commands(6). Verbal Response: sp4 oriented(5). Total: 15. 05:26 Eye Response: spontaneous(4). Motor Response: obeys commands(6). Verbal Response: sp4 oriented(5). Total: 15. MDM: 08/31 22:26 Patient medically screened. sp4 09/01 03:36 ED course: EXAM DESCRIPTION: Chest Single View CLINICAL HISTORY: feeling bad sp4 COMPARISON: None TECHNIQUE: Single AP view of the chest. FINDINGS: Lung volumes adequate. Cardiac silhouette is normal in size. No pneumothorax. No large pleural effusion. No focal consolidation. No acute bony finding. Thoracic spinal hardware noted. IMPRESSION: No acute cardiopulmonary findings.. 04:51 Differential diagnosis: otitis, sinusitis, tension headache, vasomotor headache. Data sp4 reviewed: vital signs, nurses notes, lab test result(s), EKG, radiologic studies, CT scan, plain films. ED course: LYMPH NODES: Unremarkable No enlarged lymph nodes. IMPRESSION: CT 1. No acute abnormality of the chest, abdomen, or pelvis. 2. Mild paraseptal and centrilobular emphysematous changes versus cystic lung disease. Recommend further characterization by high-resolution chest CT or comparison with prior CT chest exams, if available. 3. Cholelithiasis. 4. Fecalization contents of multiple loops of small bowel. Nonspecific, but suggests decreased motility. 5. Additional nonacute findings as above. Electronically signed by: Valdemar Tillman MD 09/01/2023 03:36 AM C. 08/31 22:26 Order name: Basic Metabolic Panel; Complete Time: 03:32 sp4 08/31 22:26 Order name: CBC with Diff; Complete Time: 02:20 sp4 08/31 22:26 Order name: LFT's; Complete Time: 03:32 sp4 08/31 22:26 Order name: Magnesium; Complete Time: 03:32 sp4 08/31 22:26 Order name: NT PRO-BNP; Complete Time: 03:32 sp4 08/31 22:26 Order name: PT-INR; Complete Time: 02:14 sp4 08/31 22:26 Order name: Troponin HS; Complete Time: 03:32 sp4 08/31 22:27 Order name: SARS RAPID; Complete Time: 02:14 sp4 08/31 22:27 Order name: Influenza Screen (a \T\ B); Complete Time: 02:14 sp4 09/01 01:46 Order name: CBC Smear Scan; Complete Time: 02:20 EDMS 09/01 02:20 Order name: Blood Culture Adult (2) sp4 09/01 02:27 Order name: C-Reactive Protein; Complete Time: 03:32 EDMS 09/01 05:50 Order name: Basic Metabolic Panel EDMS 09/01 05:50 Order name: Basic Metabolic Panel EDMS 09/01 05:50 Order name: CBC with Automated Diff EDMS 09/01 05:50 Order name: CBC with Automated Diff EDMS 09/01 08:10 Order name: Glucose, Ancillary Testing EDMS 09/01 12:06 Order name: Glucose, Ancillary Testing EDMS 08/31 22:26 Order name: XRAY Chest (1 view) sp4 09/01 02:15 Order name: CT Chest, Abdomen, Pelvis - W/Contrast sp4 09/01 14:50 Order name: US EDMS 08/31 22:26 Order name: EKG; Complete Time: 22:27 sp4 08/31 22:26 Order name: Cardiac monitoring; Complete Time: 06:34 sp4 08/31 22:26 Order name: EKG - Nurse/Tech; Complete Time: 06:34 sp4 08/31 22:26 Order name: IV Saline Lock; Complete Time: 01:20 sp4 08/31 22:26 Order name: Labs collected and sent; Complete Time: 01:20 sp4 08/31 22:26 Order name: O2 Per Protocol; Complete Time: 03:39 sp4 08/31 22:26 Order name: O2 Sat Monitoring; Complete Time: 03:39 sp4 EC:26 Rate is 115 beats/min. Rhythm is regular, Sinus tachycardia. QRS [place] is Normal. DC sp4 interval is normal. QRS interval is normal. QT interval is normal. No Q waves. T waves are Normal. No ST changes noted. Clinical impression: No evidence of ischemia. Interpreted by me. Reviewed by me. Administered Medications: 01:50 Drug: Ondansetron IVP 4 mg IVP once; over 2 minutes Route: IVP; Site: left upper arm; cg 02:50 Follow up: Response: No adverse reaction; No change in condition; Nausea is decreased pf1 01:51 Drug: metoCLOPramide IVP 10 mg IVP once; over 1 to 2 minutes Route: IVP; Site: left cg upper arm; 02:50 Follow up: Response: No adverse reaction; Marked relief of symptoms; Nausea is decreasedpf1 03:22 Drug: LevaQUIN IVPB 750 mg IVPB once Route: IVPB; Site: right antecubital; pf1 04:32 Follow up: Response: No adverse reaction; Marked relief of symptoms; IV Status: pf1 Completed infusion 04:55 Drug: vancoMYCIN IVPB 1 grams IVPB once over 2 hrs Route: IVPB; Infused Over: 2 hrs; pf1 Site: right antecubital; 05:30 Drug: Ondansetron IVP 4 mg IVP once; over 2 minutes Route: IVP; Site: right upper arm; pf1 Disposition Summary: 09/01/23 04:53 Hospitalization Ordered Notes: Hospitalization Status: Inpatient Admission sp4 Provider: Donta Conley sp4 Condition: Stable sp4 Problem: new sp4 Symptoms: have improved sp4 Bed/Room Type: Standard sp4 Location: Telemetry/MedSurg (Inpatient)(09/01/23 15:23) bd Room Assignment: [facility](09/01/23 15:23) bd Diagnosis - Muscle weakness (generalized) sp4 - Generalized weakness, fever, headaches, shortness of breath, leukocytosis sp4 Forms: - Medication Reconciliation Form sp4 - SBAR form sp4 - Leadership Thank You Letter sp4 NIH Stroke Scale - NIH Stroke Score Date: 09/01/2023 Time: 05:26 Total Score = 0 10. Dysarthria (speech clarity - read or repeat words) - 0(Normal) 11. Extinction and Inattention (visual/tactile/auditory/spatial/personal) - 0(No abnormality) 1a. Level of Consciousness (LOC) - 0(Alert) 1b. Level of Consciousness (LOC) (Month \T\ Age) - 0(Both) 1c. LOC Commands (Open \T\ Closes Eyes/[employer]) - 0(Both) 2. Best Gaze (Lateral Gaze Paresis) - 0(Normal) 3. Visual Field Loss - 0(No visual loss) 4. Facial Palsy - 0(Normal) 5a. Left Arm: Motor (10-second hold) - 0(No drift) 5b. Right Arm: Motor (10-second hold) - 0(No drift) 6a. Left Leg: Motor (5-second hold - always test supine) - 0(No drift) 6b. Right Leg: Motor (5-second hold - always test supine) - 0(No drift) 7. Limb Ataxia (finger/nose \T\ heel/quintero - test with eyes open) - 0(Absent) 8. Sensory Loss (pinprick arms/legs/face) - 0(Normal) 9. Best Language: Aphasia (description/naming/reading) - 0(No aphasia) Initials: sp4 Signatures: Dispatcher [employer] EDMS Marichuy Higgins Cindy, RN RN cg Prokisch, Amanda, RN RN ap3 Thi Beatty RN RN pf1 Lorraine Lemon rv1 Ricardo Berg MD MD sp4 Corrections: (The following items were deleted from the chart) 02:27 02:21 C-REACTIVE PROTEIN+C.LAB.BRZ ordered. EDMS EDMS 05:06 04:53 Telemetry/MedSurg (Inpatient) sp4 rv1 05:06 04:53 sp4 rv1 15:23 05:06 [facility] ER HOLD rv1 bd 15:23 05:06 ERHOLD- rv1 bd
[2023-09-01] MEDS: NA CHLORIDE 0.9% 1,000 ML IV SCH (06:00)
[2023-09-01 06:06] VITALS: BMI 29.9
[2023-09-01] MEDS ORDERED: NA CHLORIDE 0.9% 1,000 ML ONE (06:23)
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
[2023-09-01] MEDS: INSULIN REGULAR (HUMAN) 100 UNIT/ML SQ SCH (07:30)
[2023-09-01] MEDS: INFLUENZA VACCINE (for 6+ mo) 0.5 ML DOSE IMVAC ONE (08:00)
[2023-09-01] MEDS ORDERED: INSULIN REGULAR (HUMAN) 100 UNIT/ML ONE ×2 (08:19→12:14)
[2023-09-01] MEDS ORDERED: ENOXAPARIN 40 MG/0.4 ML SQ ONE (08:20)
[2023-09-01] MEDS: ENOXAPARIN 40 MG/0.4 ML SQ SCH (08:29)
--- NOTE | 2023-09-01 09:58 | RAD REPORT ---
EXAM DESCRIPTION: CT - Chest Abdomen Pelvis W Cont - 09/01/2023 6:36 am CLINICAL HISTORY: The patient is 58 years old and is Female; CHEST PAIN Bed Name: 13 TECHNIQUE: Axial computed tomography images of the chest, abdomen and pelvis with intravenous contra st. Sagittal and coronal reformatted images were created and reviewed. This CT exam was performed using one or more of the following dose reduction techniques: automated exposure control, adjustme nt of the mA and/or kV according to patient size, and/or use of iterative reconstruction technique. COMPARISON: No relevant prior studies available. FINDINGS: CHEST: LUNGS: Paraseptal and centrilobular emphysematous changes versus cystic lung disease. Subpleural atelectasis and scarring with otherwise no discrete focal consolidation. No suspicious pulmonary mass or nodule. PLEURAL SPACE: Unremarkable No significant effusion. No pneumothorax. HEART: No cardiomegaly. No significant pericardial effusion. MEDIASTINUM: Tiny hiatal hernia. ABDOMEN: LIVER: No intra or extrahepatic ductal dilatation. GALLBLADDER AND BILE DUCTS: Partially calcified gallstone with central nitrogenous gas. No gallbladder wall thickening. PANCREAS: Unremarkable No ductal dilation. No mass. SPLEEN: Unremarkable No splenomegaly. ADRENALS: Unremarkable No mass. KIDNEYS AND URETERS: Unremarkable No hydronephrosis. No solid mass. STOMACH AND BOWEL: No mucosal thickening. No evidence of small or large bowel obstruction. PELVIS: APPENDIX: No findings to suggest acute appendicitis. BLADDER: Unremarkable No mass. REPRODUCTIVE: Unremarkable as visualized. CHEST, ABDOMEN and PELVIS: INTRAPERITONEAL SPACE: Unremarkable No significant fluid collection. No free air. BONES/JOINTS: Bilateral posterior fixation of the T10-L1 vertebral body levels with partial laminec johnny changes. No evidence of hardware fracture, failure, or loosening. No dislocation. SOFT TISSUES: Unremarkable VASCULATURE: Severe calcified and noncalcified atherosclerosis of the abdominal aorta without aneur ysmal dilatation. Fecalization contents of multiple loops of small bowel. Nonspecific, but suggests d ecreased motility. Mild multivessel coronary artery calcifications. Mild calcified atherosclerosis of the thoracic aorta without aneurysmal dilatation. LYMPH NODES: Unremarkable No enlarged lymph nodes. IMPRESSION: 1. No acute abnormality of the chest, abdomen, or pelvis. 2. Mild paraseptal and centrilobular emphysematous changes versus cystic lung disease. Recommend fu rther characterization by high-resolution chest CT or comparison with prior CT chest exams, if availa ble. 3. Cholelithiasis. 4. Fecalization contents of multiple loops of small bowel. Nonspecific, but suggests decreased caro lity. 5. Additional nonacute findings as above. Electronically signed by: Valdemar Tillman MD 09/01/2023 03:36 AM COUNSELOR AIDE Due to temporary technical issues with the PACS/Fluency reporting system, reports are being signed by the in house radiologist without review as a courtesy to ensure prompt reporting. The interpreting r adiologist is fully responsible for the content of the report.
--- NOTE | 2023-09-01 10:36 | RAD REPORT ---
EXAM DESCRIPTION: RAD - Chest Single View - 08/31/2023 10:55 pm CLINICAL HISTORY: Feeling bad COMPARISON: None TECHNIQUE: Single AP view of the chest. FINDINGS: Lung volumes adequate. Cardiac silhouette is normal in size. No pneumothorax. No large pleural effusion. No focal consolidation. No acute bony finding. Thoracic spinal hardware noted. IMPRESSION: No acute cardiopulmonary findings. Electronically signed by: Alma Lynn MD 08/31/2023 11:11 PM LIBRARY INFORMATION TECHNICIAN Due to temporary technical issues with the PACS/Fluency reporting system, reports are being signed by the in house radiologist without review as a courtesy to ensure prompt reporting. The interpreting r adiologist is fully responsible for the content of the report.
[2023-09-01] MEDS ORDERED: ACETAMINOPHEN 325 MG TABLET ONE (10:54)
[2023-09-01] MEDS: ACETAMINOPHEN 325 MG TABLET PO PRN (11:05)
[2023-09-01] MEDS ORDERED: VANCOMYCIN 2 GM in NA CHLORIDE 0.9% 500 ML IVPB SCH (12:00)
[2023-09-01] MEDS: VANCOMYCIN 1.5 GM in NA CHLORIDE 0.9% 500 ML IVPB SCH (13:05)
--- NOTE | 2023-09-01 14:50 | RAD REPORT ---
EXAM DESCRIPTION: US - BREAST/AXILLA, COMPLETE - 09/01/2023 12:51 pm CLINICAL HISTORY: Right breast discharge COMPARISON: Chest Abdomen Pelvis W Cont dated 09/01/2023 FINDINGS: Full right breast sonography was performed including all 4 quadrants and the retroareolar region. Hypo dermal upper periareolar 2.1 x 2.0 x 0.8 cm ovoid region of heterogeneity and hypoechogenicity, with hypervascularity on color duplex imaging. No appreciable discrete collection components. Evaluat ion of the remainder of the right breast reveals no suspicious abnormality IMPRESSION: Hypo dermal 2.1 cm region of heterogeneity and surrounding hypervascularity, may relate to secondary infection of a sebaceous cyst or early skin abscess. No drainable fluid collection appre ciated.
--- NOTE | 2023-09-01 16:39 | EKG ---
Test Date: 2023-09-01 Test Time: 05:18:16 Ticket Dispenser Changer: YOHANA MEASUREMENT RESULTS: Intervals: Rate: 115 [place]: 138 QRSD: 76 QT: 326 QTc: 450 [place]: P: 71 NJ: 138 QRS: 41 T: 68 INTERPRETIVE STATEMENTS: Sinus tachycardia Nonspecific ST abnormality Abnormal ECG No previous ECG available for comparison Electronically Signed On 09-01-23 16:38:32 MECHANICAL ENGINEERING DRAFTSPERSON by Rufino Zhang
[2023-09-01] MEDS: ONDANSETRON 4 MG/2 ML VIAL IV PRN (17:58)
[2023-09-01] MEDS: CLINDAMYCIN 600MG/D5W 50 ML IV SCH (17:58)
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
[2023-09-01] MEDS: CEFEPIME 2 GM in NA CHLORIDE 0.9% 100 ML IV SCH (21:28)
[2023-09-01 22:25] LABS: Urine Bilirubin NEGATIVE (Negative); Urine Blood Negative (Negative); Urine Clarity Clear (Clear); Urine Color Light-Yellow (Yellow); Urine Glucose 2+ (Negative); Urine Protein NEGATIVE (Negative); Urine Urobilinogen Normal (Normal)
[2023-09-01] MEDS: VANCOMYCIN 1 GM/VIAL ONE (23:40)
[2023-09-01] MEDS: NA CHLORIDE 0.9% 500 ML ONE (23:43)
--- NOTE | 2023-09-02 08:04 | P.PN ---
Date of Service: 09/02/23 Subjective Feels better and looks better this morning. Bacteremia and a blood culture No fever overnight ROS 10 point ROS as noted above, otherwise negative Physical Exam General: AAOx3, NAD HEENT: Atraumatic, Normocephalic, PERRLA Neck: Supple, 2+ carotid pulse no bruit, JVD not distended Respiratory: Clear to auscultation bilaterally, Normal air movement, bilaterally clear breath sounds Cardiovascular: No edema, Normal pulses, RRR, Normal S1 S2, no murmur appreciated Capillary refill: <2 Seconds Gastrointestinal: Normal bowel sounds, Soft and benign, Non-distended Musculoskeletal: No clubbing, No swelling, No contractures Integumentary: No rashes, No breakdown, No significant lesion, No tenderness/swelling Neurological: Normal speech, Normal strength at 5/5 x4 extr Vitals Reviewed Problem list Chronic wound to right breast Generalized weakness Fever with tachycardia Anemia Diabetes mellitus Hx HTN Hypercholesteremia Hypothyroidism Assessment and Plan Chronic wound to right breast 2/2 Sebaceous cyst versus hidradenitis suppurativa Generalized weakness with fever s/s bacteremia Anemia -Pulse 105, Temp 100.2 at 1999 last night, afebrile now -Fall precautions -WBC 13.7, now WBC 7.0 -H&H 04/22 -initial CRP 53.5 -Chest xray reports "No acute cardiopulmonary findings". -CT CAP reports "1. No acute abnormality of the chest, abdomen, or pelvis 2. Mild paraseptal and centrilobular emphysematous changes verses cystic lung disease. 3. cholelithiasis. 4. fecalization contents of multiple loops of small bowel, nonspecific, but suggests decreased motility -blood cultures pending -tylenol for the fever - Full right breast sonography reports "Hypo dermal 2.1 cm region of heterogeneity and surrounding hypervascularity, may relate to secondary infection of a sebaceous cyst or early skin abscess. No drainable fluid collection appreciated" -Dr. Redmond consulted- no surgical intervention at this time -blood cultures growing gram-positive cocci in pairs and chains -Started Clindamycin, vancomycin, cefepime (09/01) Diabetes mellitus Serum glucose 181 Accucheck and continue with SSI Hx HTN Hypercholesteremia Hypothyroidism continue home medications DVT ppx: lovenox Full code LOS 2-3 Days
[2023-09-02] MEDS ORDERED: VANCOMYCIN 1 GM in NA CHLORIDE 0.9% 250 ML IVPB SCH (09:00)
[2023-09-02 09:35] LABS: Hematocrit 28.7 % (36.0-45.0); Lymphocytes % 14.4 % (15.3-44.8); MCV 70.8 fL (80-100); MPV 8.7 fL (7.6-11.3); Platelets 255 thou/uL (152-406); RBC Red Blood Cell Count 4.06 M/uL (3.86-4.86)
[2023-09-02 09:59] LABS: Magnesium 1.9 mg/dL (1.6-2.4); Phosphorus 2.8 mg/dL (2.5-4.9); Potassium 3.7 mEq/L (3.5-5.1)
[2023-09-02] MEDS: GABAPENTIN 100 MG CAP PO SCH (14:01)
[2023-09-02] MEDS: ATORVASTATIN 40 MG TAB PO SCH (21:20)
[2023-09-02] MEDS: DOCUSATE NA 100 MG CAP PO SCH (21:21)
[2023-09-03] MEDS: LEVOTHYROXINE SOD 0.025 MG TAB PO SCH (06:37)
[2023-09-03 07:54] LABS: Magnesium 1.9 mg/dL (1.6-2.4); Phosphorus 3.7 mg/dL (2.5-4.9)
--- NOTE | 2023-09-03 08:06 | P.PN ---
Date of Service: 09/03/23 Subjective Afebrile Red spots noted to the left leg Otherwise feeling well ROS 10 point ROS as noted above, otherwise negative Physical Exam General: AAOx3, NAD HEENT: Atraumatic, Normocephalic, PERRLA Neck: Supple, 2+ carotid pulse no bruit, JVD not distended Respiratory: Clear to auscultation bilaterally, Normal air movement, bilaterally clear breath sounds Cardiovascular: No edema, Normal pulses, RRR, Normal S1 S2, no murmur appreciated Capillary refill: <2 Seconds Gastrointestinal: Normal bowel sounds, Soft and benign, Non-distended Musculoskeletal: No clubbing, No swelling, No contractures Integumentary: No rashes, No breakdown, No significant lesion, No tenderness/swelling Neurological: Normal speech, Normal strength at 5/5 x4 extr Vitals Reviewed Problem list Chronic wound to right breast Generalized weakness Fever with tachycardia Anemia Diabetes mellitus Hx HTN Hypercholesteremia Hypothyroidism Assessment and Plan Chronic wound to right breast 2/2 hidradenitis suppurativa Generalized weakness with fever secondary to gram positive cocci bacteremia Anemia -Pulse 105, Temp 100.2 at 2000 last night, afebrile now -Fall precautions -WBC 13.7, now WBC 7.0 -H/H 10.2/33.0, 9.1/28.7, 8.6/27.5- RDW 24/24.2/24.3 -initial CRP 53.5 -Chest xray reports "No acute cardiopulmonary findings". -CT CAP reports "1. No acute abnormality of the chest, abdomen, or pelvis 2. Mild paraseptal and centrilobular emphysematous changes verses cystic lung disease. 3. cholelithiasis. 4. fecalization contents of multiple loops of small bowel, nonspecific, but suggests decreased motility -blood cultures pending -tylenol for the fever - Full right breast sonography reports "Hypo dermal 2.1 cm region of heterogeneity and surrounding hypervascularity, may relate to secondary infection of a sebaceous cyst or early skin abscess. No drainable fluid collection appreciated" -Dr. Redmond consulted- no surgical intervention at this time -blood cultures growing gram-positive cocci in pairs and chains -Started Clindamycin, vancomycin (09/01), Levaquin (09/03) -Stopped cefepime d/t hives -Infectious disease consult Urinary discomfort -UA neg twice this admission -recent UTI Diabetes mellitus -Serum glucose 181 -Accucheck and continue with SSI Hx HTN Hypercholesteremia Hypothyroidism -continue home medications DVT ppx: lovenox Full code LOS 2-3 Days <Emily Obrien - Last Filed: 09/03/23 19:21> Patient seen and examined with Micah. Diagnosis: Hidradenitis suppurativa Gram-positive cocci bacteremia Recent history of UTI with urinary symptoms. Suspected skin allergy to cefepime Plan: Continue vancomycin. IV cefepime discontinued. IV Levaquin given urinary symptoms. Follow blood culture ID. Infectious disease consult. <cheryl marie - Last Filed: 09/05/23 16:55>
[2023-09-03 08:44] LABS: Absolute Lymphocytes (CBC) 1.5 K/uL (0.7-4.9); Hematocrit 27.5 % (36.0-45.0); Lymphocytes % 23.4 % (15.3-44.8); MPV 8.6 fL (7.6-11.3); Platelets 246 thou/uL (152-406); RBC Red Blood Cell Count 3.88 M/uL (3.86-4.86)
[2023-09-03 08:59] LABS: Potassium 4.1 mEq/L (3.5-5.1)
[2023-09-03] MEDS: CLOPIDOGREL 75 MG TABLET PO SCH (10:25)
[2023-09-03] MEDS: ASPIRIN 81 MG CHEWABLE TABLET PO SCH (10:25)
[2023-09-03] MEDS: PIOGLITAZONE 15 MG TAB PO SCH (10:26)
--- NOTE | 2023-09-03 10:35 | PN ---
Date of Progress Note: 09/03/2023 Subjective: Patient is awake, alert. No complaint with regard to her breast. However, she is compl aining of pelvic pain when she urinates. Vital signs are stable. She is afebrile. Examination of t he right breast reveals no erythema, no warmth. No purulent discharge at this time. No tenderness. Assessment: History of chronic infection of right breast with positive blood cultures. Recommendations: ID consult for evaluation of which antibiotic should be treated, for how long. May need to repeat the UA to rule out a UTI on the patient. There is no need for any surgical intervent ion on this patient at this time. Please re-consult isadora HOPPER/CAROLINA Voice ID: [id number] Report ID: [id number]
[2023-09-03] MEDS: HYDROCODONE/APAP 5/325 MG TAB PO PRN (13:10)
[2023-09-03] MEDS: Levofloxacin 750mg IV 750 MG/150 ML BAG IV SCH (13:11)
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
[2023-09-03 18:30] LABS: Specific Gravity 1.017 (1.005-1.030); Urine Bilirubin NEGATIVE (Negative); Urine Blood Negative (Negative); Urine Clarity Clear (Clear); Urine Color Light-Yellow (Yellow); Urine Glucose NEGATIVE (Negative); Urine Protein NEGATIVE (Negative); Urine Urobilinogen Normal (Normal)
[2023-09-04 03:46] LABS: Absolute Lymphocytes (CBC) 1.8 K/uL (0.7-4.9); Hematocrit 28.3 % (36.0-45.0); Lymphocytes % 25.5 % (15.3-44.8); MCV 70.9 fL (80-100); MPV 9.3 fL (7.6-11.3); Platelets 260 thou/uL (152-406); RBC Red Blood Cell Count 3.99 M/uL (3.86-4.86)
[2023-09-04 04:12] LABS: Magnesium 1.7 mg/dL (1.6-2.4); Phosphorus 3.3 mg/dL (2.5-4.9)
--- NOTE | 2023-09-04 09:35 | P.PN ---
Date of Service: 09/04/23 Subjective Awake and feeling well this morning Rash to right leg cleared up with stopping cefepime no new complaints ROS 10 point ROS as noted above, otherwise negative Physical Exam General: Alert and oriented x3, comfortable, NAD HEENT: Atraumatic, Normocephalic, PERRLA Neck: Supple, 2+ carotid pulse no bruit, JVD not distended Respiratory: Clear to auscultation bilaterally, Normal air movement, bilaterally clear breath sounds Cardiovascular: No edema noted, Normal pulses, Regular rate and rhythm, Normal S1 S2, no murmur appreciated Capillary refill: <2 Seconds Gastrointestinal: Normal bowel sounds, Soft and benign on palpation, Non-distended/non-tender Musculoskeletal: No clubbing, No swelling, No contractures Integumentary: No rashes, No breakdown, No significant lesion, No tenderness/swelling Neurological: Normal speech, Normal strength at 5/5 x4 extr Vitals Reviewed Problem list Chronic wound to right breast Generalized weakness Fever with tachycardia Anemia Diabetes mellitus Hx HTN Hypercholesteremia Hypothyroidism Assessment and Plan Chronic wound to right breast 2/2 hidradenitis suppurativa Generalized weakness with fever secondary to gram positive cocci bacteremia Macrocytic Anemia - afebrile -Fall precautions -WBC 13.7, now WBC normalized -H/H 10.2/33.0, 9.1/28.7, 8.6/27.5- RDW 24/24.2/24.3 -iron studies ordered -initial CRP 53.5, redraw pending -Chest xray reports "No acute cardiopulmonary findings". -CT CAP reports "1. No acute abnormality of the chest, abdomen, or pelvis 2. Mild paraseptal and centrilobular emphysematous changes verses cystic lung disease. 3. cholelithiasis. 4. fecalization contents of multiple loops of small bowel, nonspecific, but suggests decreased motility -tylenol for the fever - Full right breast sonography reports "Hypo dermal 2.1 cm region of heterogeneity and surrounding hypervascularity, may relate to secondary infection of a sebaceous cyst or early skin abscess. No drainable fluid collection appreciated" -Dr. Redmond consulted- no surgical intervention at this time -blood cultures growing gram-positive cocci in pairs and chains,C and S pending -redraw blood culture pending -Started Clindamycin, vancomycin (09/01), Levaquin (09/03) -Stopped cefepime d/t hives -Infectious disease consult Urinary discomfort-improved -UA neg twice this admission -recent UTI Diabetes mellitus -Serum glucose 190 -Accucheck and continue with SSI Hx HTN Hypercholesteremia Hypothyroidism -continue home medications DVT ppx: lovenox Full code LOS 2-3 Days
[2023-09-05] MEDS: MORPHINE 2 MG/ML SYR IV ONE (01:12)
[2023-09-05 03:11] LABS: Hematocrit 26.7 % (36.0-45.0); MCV 70.3 fL (80-100); Platelets 304 thou/uL (152-406); RBC Red Blood Cell Count 3.79 M/uL (3.86-4.86)
[2023-09-05 03:54] LABS: C-Reactive Protein 36.6 mg/L (<3.00); Ferritin 25.4 ng/mL (8-388); Magnesium 1.8 mg/dL (1.6-2.4); Phosphorus 4.4 mg/dL (2.5-4.9)
[2023-09-05 09:12] LABS: Platelet Estimate ADEQ; White Blood Cell Scan OK (OK)
[2023-09-05 09:13] LABS: Anisocytosis 1+; Blood Morphology Comment NOTED (NOT SEEN)
--- NOTE | 2023-09-05 11:25 | RAD REPORT ---
EXAM DESCRIPTION: CTAbdomen Pelvis W Contrast - 09/05/2023 11:17 am CLINICAL HISTORY: Abdominal pain. UTI with flank pain and bacteremia COMPARISON: No comparisons TECHNIQUE: Biphasic CT imaging of the abdomen and pelvis was performed with 100 ml non-ionic IV cont rast. All CT scans are performed using dose optimization technique as appropriate and may include automated exposure control or mA/KV adjustment according to patient size. FINDINGS: Mild atelectasis is seen in both lung bases. The liver demonstrates fatty infiltration. Cholelithiasis. Spleen, pancreas, adrenal glands and kidne ys are within normal limits. No bowel obstruction, free air, free fluid or abscess. Moderate retained stool throughout the colon. Fecalization small-bowel loops is present. The appendix is normal. No evidence of significant lympha denopathy. Hardware is present spanning the thoracolumbar spine. IMPRESSION: No acute intra-abdominal or pelvic finding. Cholelithiasis. Moderate stool is present throughout the colon.
[2023-09-05] MEDS: PHENAZOPYRIDINE 100MG TAB PO SCH (13:37)
--- NOTE | 2023-09-05 16:33 | P.PN ---
Date of Service: 09/05/23 Subjective Reports bladder spasm pain OVN- started pyridium Overall doing better, afebrile ROS 10 point ROS as noted above, otherwise negative Physical Exam General: AAOx3, NAD, HEENT: Atraumatic, Normocephalic, PERRLA Neck: Supple, 2+ carotid pulse no bruit, JVD not distended Respiratory: Clear to auscultation bilaterally, Normal air movement, symmetrical chest wall movement Cardiovascular: No edema noted, Normal pulses, RRR, Normal S1 S2, no murmur appreciated Capillary refill: <2 Seconds Gastrointestinal: Normoactive, ND/NT, Soft and benign on palpation Musculoskeletal: No clubbing, No swelling, No contractures Integumentary: No rashes, No breakdown, No significant lesion, No tenderness/swelling Neurological: Normal speech, Normal strength at 5/5 x4 extr Vitals Reviewed Problem list Chronic wound to right breast Generalized weakness Fever with tachycardia Anemia Diabetes mellitus Hx HTN Hypercholesteremia Hypothyroidism Assessment and Plan Chronic wound to right breast 2/2 hidradenitis suppurativa Generalized weakness with fever secondary to gram positive cocci bacteremia Macrocytic Anemia - afebrile -Fall precautions -H/H 10.2/33.0, 9.1/28.7, 8.6/27.5- RDW 24/24.2/24.3 -iron 23, ferritin 254 -initial CRP 53.5, redraw pending -Chest xray reports "No acute cardiopulmonary findings". -CT CAP reports "1. No acute abnormality of the chest, abdomen, or pelvis 2. Mild paraseptal and centrilobular emphysematous changes verses cystic lung disease. 3. cholelithiasis. 4. fecalization contents of multiple loops of small bowel, nonspecific, but suggests decreased motility -tylenol for the fever - Full right breast sonography reports "Hypo dermal 2.1 cm region of heterogeneity and surrounding hypervascularity, may relate to secondary infection of a sebaceous cyst or early skin abscess. No drainable fluid collection appreciated" -Dr. Redmond consulted- no surgical intervention at this time -blood cultures growing gram-positive cocci in pairs and chains,C and S levaquin -redraw blood culture pending -Started Clindamycin, vancomycin (09/01), Levaquin (09/03) -Stopped cefepime d/t hives -Infectious disease consult Dysuria -UA neg twice this admission -recent UTI -Pyridium started Diabetes mellitus -Serum glucose 156 -Accucheck and continue with SSI Hx HTN Hypercholesteremia Hypothyroidism -continue home medications DVT ppx: lovenox Full code LOS 2-3 Days
[2023-09-06 04:56] LABS: Absolute Lymphocytes (CBC) 1.7 K/uL (0.7-4.9); Hematocrit 27.9 % (36.0-45.0); Lymphocytes % 22.1 % (15.3-44.8); MCV 70.9 fL (80-100); MPV 8.7 fL (7.6-11.3); Platelets 302 thou/uL (152-406); RBC Red Blood Cell Count 3.93 M/uL (3.86-4.86)
[2023-09-06 05:01] LABS: Magnesium 1.9 mg/dL (1.6-2.4); Phosphorus 4.1 mg/dL (2.5-4.9)
--- NOTE | 2023-09-06 07:47 | P.PN ---
Date of Service: 09/06/23 Subjective Feeling well this morning Still c/o bladder spasms and left flank pain only at night Tolerating IV antibiotic therapy ROS 10 point ROS as noted above, otherwise negative Physical Exam General: AAOx3, NAD, Calm HEENT: Atraumatic, Normocephalic, PERRLA Neck: Supple, 2+ carotid pulse no bruit, JVD not distended Respiratory: Clear to auscultation bilaterally, Normal air movement, symmetrical chest wall movement, on RA Cardiovascular: No edema noted, RRR, Normal S1 S2, no murmur appreciated Capillary refill: <2 Seconds Gastrointestinal: Normoactive, Non-distended, tender and Soft on palpation Musculoskeletal: No clubbing, No swelling, No contractures, 2 + peripheral pulses Breast: right areola with cyst, no drainage Integumentary: No rashes, No breakdown, No significant lesion, No tenderness/swelling Neurological: Normal speech, Normal strength at 5/5 x4 extr Vitals Reviewed Problem list Chronic wound to right breast Generalized weakness Fever with tachycardia Anemia Diabetes mellitus Hx HTN Hypercholesteremia Hypothyroidism Assessment and Plan Chronic wound to right breast 2/2 hidradenitis suppurativa Generalized weakness with fever secondary to gram positive cocci bacteremia Macrocytic Anemia - afebrile -Fall precautions -H/H 10.2/33.0, 9.1/28.7, 8.6/27.5- RDW 24/24.2/24.3 -iron 23, ferritin 254 -initial CRP 53.5, redraw pending -Chest xray reports "No acute cardiopulmonary findings". -CT CAP reports "1. No acute abnormality of the chest, abdomen, or pelvis 2. Mild paraseptal and centrilobular emphysematous changes verses cystic lung disease. 3. cholelithiasis. 4. fecalization contents of multiple loops of small bowel, nonspecific, but suggests decreased motility -tylenol for the fever - Full right breast sonography reports "Hypo dermal 2.1 cm region of heterogeneity and surrounding hypervascularity, may relate to secondary infection of a sebaceous cyst or early skin abscess. No drainable fluid collection appreciated" -Dr. Redmond consulted- no surgical intervention at this time -blood cultures growing gram-positive cocci in pairs and chains,C and S levaquin -redraw blood culture pending -continue Clindamycin (09/01) hydradenitis suppurative and Levaquin (09/03) -Stopped vancomycin 09/06 -Stopped cefepime d/t hives -Infectious disease consulted Dysuria -UA neg twice this admission -recent UTI -Pyridium started Diabetes mellitus -Serum glucose 185 -Continue Accucheck and continue with SSI Hx HTN Hypercholesteremia Hypothyroidism -continue home medications DVT ppx: lovenox Full code LOS 2-3 Days- Social work to help with IV antibiotics therapy <Emily Obrien - Last Filed: 09/06/23 12:13> Patient seen and examined. Plan of care discussed with Ms. Obrien. Enterococcal faecalis bacteremia Prior UTI Hidradenitis-right breast. Plan: 2 weeks of IV antibiotics, preference should have been penicillin-based but patient has significant penicillin allergy. Patient will need to complete 10 more days of IV vancomycin. Monitor vancomycin levels and adjust doses. Check BMP at least once weekly to follow renal function. Recommending oral doxycycline and topical clindamycin for treatment of chronic recurrent right breast hidradenitis-3 months of therapy. Patient is already on metformin which could also act as adjuvant therapy for hidradenitis. Patient is unfunded so arranging for outpatient IV antibiotics may pose a challenge. Social service/CM evaluating for possible home IV antibiotic therapy. <cheryl marie - Last Filed: 09/06/23 17:19>
[2023-09-06] MEDS: Mupirocin NASAL 2 APPL/1 GM TUBE NAS SCH (09:17)
[2023-09-06] MEDS: VANCOMYCIN 1.5 GM in NA CHLORIDE 0.9% 500 ML IVPB SCH (17:56)
[2023-09-06] MEDS: DOXYCYCLINE 100 MG CAP PO SCH (20:38)
[2023-09-06] MEDS: INSULIN GLARGINE 100 UNIT/ML SQ SCH (20:39)
--- NOTE | 2023-09-06 22:07 | RAD REPORT ---
EXAM DESCRIPTION: RAD - Chest Single View - 09/06/2023 9:21 pm CLINICAL HISTORY: Device placement PICC line placement IMPRESSION: PICC line with its tip in the superior vena cava
[2023-09-07 05:38] LABS: Absolute Lymphocytes (CBC) 1.3 K/uL (0.7-4.9); Hematocrit 26.9 % (36.0-45.0); Lymphocytes % 14.7 % (15.3-44.8); MCV 71.3 fL (80-100); MPV 8.8 fL (7.6-11.3); Platelets 293 thou/uL (152-406); RBC Red Blood Cell Count 3.77 M/uL (3.86-4.86)
[2023-09-07 05:46] LABS: Magnesium 1.7 mg/dL (1.6-2.4); Phosphorus 3.1 mg/dL (2.5-4.9); Potassium 3.7 mEq/L (3.5-5.1)
[2023-09-07] MEDS: MAGNESIUM SULFATE 1 gm IVPB 1 GM/100 ML BAG IV ONE (06:22)
[2023-09-07] MEDS: POTASSIUM CL SA 10 MEQ TAB PO ONE (08:10)
[2023-09-07 08:35] LABS: Anisocytosis 2+; Blood Morphology Comment NOTED (NOT SEEN); Platelet Estimate ADEQ
[2023-09-07 08:36] LABS: Ovalocytes 1+
--- NOTE | 2023-09-07 13:48 | P.PN ---
Date of Service: 09/07/23 Subjective: No acute events overnight Still complains of bladder spasms/dysuria ROS: 10 point ROS as noted above, otherwise negative Physical exam GEN: Alert, oriented, NAD HEENT: Normal conjunctiva, sclera anicteric CV: Regular rate and rhythm, no edema Pulm: Nonlabored respirations on room air ABD: Soft, nontender, nondistended MSK: No joint tenderness Integumentary: No rashes Neuro: Normal speech, normal affect Vitals reviewed Problem List Chronic wound to right breast 2/2 hidradenitis suppurativa Generalized weakness with fever secondary to gram positive cocci bacteremia (Enterococcus faecalis) Anemia Diabetes mellitus Hypertension Hypercholesteremia Hypothyroidism Plan Chronic wound to right breast 2/2 hidradenitis suppurativa Generalized weakness with fever secondary to gram positive cocci bacteremia (Enterococcus faecalis) PICC line in place Will need 2 weeks of vancomycin 1.5 g twice daily end date 09/16/2023 Will also need oral doxycycline for total of 3 months and topical clindamycin First blood cultures from 09/01/2023 all 4 bottles positive Repeat blood cultures 09/03/2023 and 09/04/2023 with no growth Anemia Mildly iron deficient, monitor CBC daily, continue oral iron Diabetes mellitus ACHS Accu-Chek, sliding scale insulin Hypertension Hypercholesteremia Hypothyroidism Continue home medications DVT ppx: lovenox Full code LOS 2-3 Days- Social work to help with IV antibiotics therapy Time Spent Managing Pts Care (In Minutes): 35
[2023-09-08 05:02] LABS: Absolute Lymphocytes (CBC) 1.3 K/uL (0.7-4.9); Hematocrit 23.3 % (36.0-45.0); Lymphocytes % 16.8 % (15.3-44.8); MCV 70.5 fL (80-100); MPV 8.4 fL (7.6-11.3); Platelets 302 thou/uL (152-406)
[2023-09-08 05:09] LABS: Magnesium 1.8 mg/dL (1.6-2.4); Phosphorus 3.6 mg/dL (2.5-4.9); Potassium 3.7 mEq/L (3.5-5.1)
[2023-09-08] MEDS: MAGNESIUM SULFATE 1 gm IVPB 1 GM/100 ML BAG IV ONE ×2 (06:15→08:48)
[2023-09-08] MEDS: POTASSIUM CL SA 10 MEQ TAB PO ONE (08:48)
[2023-09-08] MEDS ORDERED: SODIUM CHLORIDE 0.9% 10ML INJ IV PRN (10:29)
--- NOTE | 2023-09-08 10:38 | P.PN ---
Date of Service: 09/08/23 Subjective: No acute events overnight Still complains of bladder spasms/dysuria ROS: 10 point ROS as noted above, otherwise negative Physical exam GEN: Alert, oriented, NAD HEENT: Normal conjunctiva, sclera anicteric CV: Regular rate and rhythm, no edema Pulm: Nonlabored respirations on room air ABD: Soft, nontender, nondistended MSK: No joint tenderness Integumentary: No rashes Neuro: Normal speech, normal affect Vitals reviewed Problem List Chronic wound to right breast 2/2 hidradenitis suppurativa Generalized weakness with fever secondary to gram positive cocci bacteremia (Enterococcus faecalis) Anemia Diabetes mellitus Hypertension Hypercholesteremia Hypothyroidism Plan Chronic wound to right breast 2/2 hidradenitis suppurativa Generalized weakness with fever secondary to gram positive cocci bacteremia (Enterococcus faecalis) PICC line in place Will need 2 weeks of vancomycin 1.5 g twice daily end date 09/16/2023 Will also need oral doxycycline for total of 3 months and topical clindamycin First blood cultures from 09/01/2023 all 4 bottles positive Repeat blood cultures 09/03/2023 and 09/04/2023 with no growth Anemia KRISHNA also reports melena since one month ago when she started taking oral iron She has not been getting PO iron for the last 7 days, still having melena HGB down to 7.5 today Started in BID PPI, GI consulted Diabetes mellitus ACHS Accu-Chek, sliding scale insulin Hypertension Hypercholesteremia Hypothyroidism Continue home medications DVT ppx: lovenox Full code LOS 2-3 Days- Social work to help with IV antibiotics therapy Time Spent Managing Pts Care (In Minutes): 35
[2023-09-08 12:35] LABS: Ferritin 36.5 ng/mL (8-388)
[2023-09-08] MEDS: PANTOPRAZOLE 40 MG INJ IVP SCH (20:39)
[2023-09-08] MEDS: ACETAMINOPHEN 325 MG TABLET PO PRN (21:01)
[2023-09-09 03:53] LABS: Absolute Lymphocytes (CBC) 0.9 K/uL (0.7-4.9); Hematocrit 22.6 % (36.0-45.0); MCV 70.5 fL (80-100); MPV 8.8 fL (7.6-11.3); Platelets 280 thou/uL (152-406)
[2023-09-09 03:55] LABS: Magnesium 1.8 mg/dL (1.6-2.4); Potassium 3.6 mEq/L (3.5-5.1)
[2023-09-09] MEDS: MAGNESIUM SULFATE 1 gm IVPB 1 GM/100 ML BAG IV ONE (05:00)
[2023-09-09] MEDS: POTASSIUM CL SA 10 MEQ TAB PO ONE (08:21)
[2023-09-09] MEDS: Levofloxacin 750mg IV 750 MG/150 ML BAG IV SCH (08:22)
[2023-09-09] MEDS: NA CHLORIDE 0.9% 1,000 ML ONE (08:25)
[2023-09-09] MEDS ORDERED: EPINEPHRINE 1 MG/ML VIAL ONE ×2 (09:13→10:16)
[2023-09-09] MEDS ORDERED: LIDOCAINE 1% MPF 5 ML VIAL ONE (09:33)
[2023-09-09] MEDS ORDERED: propofoL 200 MG/20 ML VIAL IV ONE ×2 (09:33)
--- NOTE | 2023-09-09 14:20 | P.PN ---
Date of Service: 09/09/23 Subjective: Still having melena fevers overnight ROS: 10 point ROS as noted above, otherwise negative Physical exam GEN: Alert, oriented, NAD HEENT: Normal conjunctiva, sclera anicteric CV: Regular rate and rhythm, no edema Pulm: Nonlabored respirations on room air ABD: Soft, nontender, nondistended MSK: No joint tenderness Integumentary: No rashes Neuro: Normal speech, normal affect Vitals reviewed Problem List Chronic wound to right breast 2/2 hidradenitis suppurativa Generalized weakness with fever secondary to gram positive cocci bacteremia (Enterococcus faecalis) Anemia Diabetes mellitus Hypertension Hypercholesteremia Hypothyroidism Plan Chronic wound to right breast 2/2 hidradenitis suppurativa Generalized weakness with fever secondary to gram positive cocci bacteremia (Enterococcus faecalis) PICC line in place Will need 2 weeks of vancomycin 1.5 g twice daily end date 09/16/2023 First blood cultures from 09/01/2023 all 4 bottles positive Repeat blood cultures 09/03/2023 and 09/04/2023 with no growth Started running fevers again 09/07-09/08 PO doxy discontinued, started on IV Levaquin 09/09 Repeat blood cultures obtained and pending Anemia KRISHNA reports melena since one month ago when she started taking oral iron She has not been getting PO iron since she was admitted here, still having melena HGB down to 7.1 today Started in BID PPI, GI consulted EGD 09/09 with gastritis Monitor H/H as well as if melena continues Holding asa/plavix/lovenox for now SCDs for DVT PPX Diabetes mellitus ACHS Accu-Chek, sliding scale insulin Hypertension Hypercholesteremia Hypothyroidism Continue home medications DVT ppx: SCD Full code LOS 2-3 Days- Social work to help with IV antibiotics therapy Time Spent Managing Pts Care (In Minutes): 35
[2023-09-09] MEDS: ACETAMINOPHEN 325 MG TABLET PO ONE (17:34)
[2023-09-09] MEDS: DIPHENHYDRAMINE 25 MG TAB/CAP PO ONE (19:42)
[2023-09-10 04:36] LABS: Lymphocytes % 13.2 % (15.3-44.8); MCV 70.3 fL (80-100); MPV 8.4 fL (7.6-11.3); Platelets 237 thou/uL (152-406); RBC Red Blood Cell Count 2.84 M/uL (3.86-4.86)
[2023-09-10 05:24] LABS: Albumin 2.2 g/dL (3.4-5.0); Bilirubin Total 0.3 mg/dL (0.2-1.0); Magnesium 1.7 mg/dL (1.6-2.4); Potassium 3.5 mEq/L (3.5-5.1); Protein, Total 5.5 g/dL (6.4-8.2)
[2023-09-10] MEDS: MAGNESIUM SULFATE 1 gm IVPB 1 GM/100 ML BAG IV ONE (05:36)
[2023-09-10] MEDS ORDERED: NA CHLORIDE 0.9% 250 ML IV SCH (07:00)
[2023-09-10 07:13] LABS: Anisocytosis 1+; Blood Morphology Comment NOTED (NOT SEEN); Platelet Estimate ADEQ
--- NOTE | 2023-09-10 08:47 | P.PN ---
Date of Service: 09/10/23 Chief Complaint: generalized weakness Subjective: s/p EGD on 09/09. Fevers 102.6 F Patient reports new fever, chills, nausea, diarrhea. She also reports generalized itching. Left arm erythema. Pending repeat CT abdomen/pelvis. Physical Examination Temp Pulse Resp BP Pulse Ox 102.6 F H 110 H 20 115/46 L 90 L 09/10/23 04:34 09/10/23 04:00 09/10/23 04:00 09/10/23 04:00 09/10/23 04:00 General: in no apparent distress. A&Ox3 HEENT: head normocephalic, atraumatic. Resp: Clear to auscultation. Nonlabored respirations on room air CV: Tachycardic. No edema. Skin: Right breast wound/ hidradenitis. Left arm erythema. Laboratory Data - Reviewed Microbiology Data - Reviewed Imagings Data: - Reviewed Medications List: Reviewed Assessment and PLan Problem List E. faecalis bacteremia Chronic right breast wound Diabetes Mellitus Hypothyroidism Anemia Fever Hypertension Enterococcus faecalis Bacteremia - Blood cultures 09/01: Enterococcus faecalis in 4 of 4 bottles - repeat blood cultures 09/03: no growth to date - CT 09/01 Chest abdomen pelvis: "1. No acute abnormality of the chest, abdomen, or pelvis. 2. Mild paraseptal and centrilobular emphysematous changes versus cystic lung disease. Recommend further characterization by high-resolution chest CT or comparison with prior CT chest exams, if available. 3. Cholelithiasis. 4. Fecalization contents of multiple loops of small bowel. Nonspecific, but suggests decreased motility. 5. Additional nonacute findings as above." - On Vancomycin and Levaquin IV Patient began developing fever 09/08 of 100.7. 09/09-09/10: fevers up to 102.6F - Repeat blood cultures 09/08: no growth to date - 09/10 repeat influenza, covid, RSV = negative - repeat CT abdomen/pevis with contrast 09/10: "Cholelithiasis without evidence of cholecystitis" - LDH 307; CRP 50 Recommendations - E.faecalis bacteremia: Continue antibiotic therapy for 14 days. Vancomycin switched to Daptomycin. Continue with Daptomycin for now. Levaquin switched to Aztreonam. Continue for now. - Patient now with fevers 102.6 F. Negative influenza, covid and RSV. - monitor CBC, BMP and fever trends - Wound care per Dr. Redmond - strict blood glucose control Case discussed with Alejandra Canas
[2023-09-10 09:01] LABS: RBC Red Blood Cell Count 3.1 M/uL (3.86-4.86)
--- NOTE | 2023-09-10 09:47 | RAD REPORT ---
EXAM DESCRIPTION: CT - Chest Abdomen Pelvis W Cont - 09/10/2023 9:19 am CLINICAL HISTORY: Chest and abdominal pain bacteremia COMPARISON: September 01, 2023 TECHNIQUE: Computed axial tomography of the chest, abdomen and pelvis was obtained. 100 cc Isovue-30 0 was administered intravenously. Oral contrast was given All CT scans are performed using dose optimization technique as appropriate and may include automated exposure control or mA/KV adjustment according to patient size. FINDINGS: The lungs are clear No mediastinal or hilar lymphadenopathy. No pleural effusion. No pericardial effusion. Cholelithiasis. Gallbladder wall not thickened. Liver, spleen, pancreas, adrenals and kidneys are unremarkable No evidence of diverticulitis. No adnexal mass. Normal appendix Postsurgical changes lumbar spine IMPRESSION: Cholelithiasis without evidence of cholecystitis
[2023-09-10] MEDS: POTASSIUM CL SA 10 MEQ TAB PO ONE (09:51)
[2023-09-10] MEDS: DIPHENHYDRAMINE 25 MG TAB/CAP PO ONE (11:52)
[2023-09-10 12:24] LABS: SARS-COV-2 RT PCR NEGATIVE (NEGATIVE)
--- NOTE | 2023-09-10 13:27 | P.PN ---
Date of Service: 09/10/23 Subjective: Still having melena fevers overnight ROS negative ROS: 10 point ROS as noted above, otherwise negative Physical exam GEN: Alert, oriented, NAD HEENT: Normal conjunctiva, sclera anicteric CV: Regular rate and rhythm, no edema Pulm: Nonlabored respirations on room air ABD: Soft, nontender, nondistended MSK: No joint tenderness Integumentary: No rashes Neuro: Normal speech, normal affect Vitals reviewed Problem List Chronic wound to right breast 2/2 hidradenitis suppurativa Generalized weakness with fever secondary to gram positive cocci bacteremia (Enterococcus faecalis) Anemia Diabetes mellitus Hypertension Hypercholesteremia Hypothyroidism Plan Chronic wound to right breast 2/2 hidradenitis suppurativa Generalized weakness with fever secondary to gram positive cocci bacteremia (Enterococcus faecalis) PICC line in place First blood cultures from 09/01/2023 all 4 bottles positive Repeat blood cultures 09/03/2023 and 09/04/2023 with no growth Started running fevers again 09/07-09/08, up to 103 09/10 09/08 blood cultures repeated-no growth to date Switched from Vancomycin to daptomycin 09/10 given concern for VRE Levaquin switched to Azreonam for broad coverage given PCN/cephalosporin allergy CTA CAP with contrast negative for infectious findings 09/10 Viral swabs negative 09/10 Echo performed 09/10 pending interpretation 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 Anemia KRISHNA reports melena since one month ago when she started taking oral iron She has not been getting PO iron since she was admitted here, still having melena HGB down to 6.4 today Started in BID PPI, GI consulted Given 1 unit PRBC 09/10 EGD 09/09 with gastritis Holding asa/plavix/lovenox for now SCDs for DVT PPX Diabetes mellitus ACHS Accu-Chek, sliding scale insulin Hypertension Hypercholesteremia Hypothyroidism Continue home medications DVT ppx: SCD Full code LOS 2-3 Days- Social work to help with IV antibiotics therapy Time Spent Managing Pts Care (In Minutes): 35 <Fco Ramirez - Last Filed: 09/10/23 13:22> Patient seen and examined on rounds this morning with STUDIO CAMERA OPERATOR Ashley, agree with plan of care as noted above with following additions/corrections: Patient febrile last ~24hrs unclear etiology, patient without any new/worsening specific symptoms unlikely drug reaction patient's vanc was briefly stopped and restarted leading to a minimal delay, with troughs borderline low / for enterococcus with an ALEC of 4, may be considered subtherapeutic with goal more 15-20 / closer to 20 given the nature of enterococcus species, there is possibility we are dealing with VRE now change vanc to dapto 09/10; and added aztrenam for further broad coverage echo, CT chest/abd/pelvis without any obvious signs of infection, repeat cultures Anemia, acute; suspect blood loss anemia, and component of bone marrow suppression due to infection still having dark black stool / melena. at this time suspicion for GI bleed remains, EGD was clear 1uPRBC ordered today on differential but less likely given full picture / exam - ischemic colitis; DIC, hemolytic anemia check LDH, retic count, send blood smear bleeding scan ordered <Christopher Pitts - Last Filed: 09/10/23 20:20>
[2023-09-10] MEDS: AZTREONAM 2 GM in NA CHLORIDE 0.9% 100 ML IV SCH (14:17)
[2023-09-10] MEDS: DAPTOmycin 500 MG in NA CHLORIDE 0.9% 100 ML IVPB SCH (15:33)
[2023-09-10] MEDS: DIPHENHYDRAMINE 25 MG TAB/CAP PO PRN (15:33)
[2023-09-10] MEDS: OCTREOTIDE 500 MCG in NA CHLORIDE 0.9% 500 ML IV SCH (16:06)
[2023-09-10] MEDS: LORAZEPAM 0.5 MG TABLET PO ONE (21:13)
[2023-09-11 04:10] LABS: Hematocrit 25.5 % (36.0-45.0); MCV 73.7 fL (80-100); Platelets 225 thou/uL (152-406); RBC Red Blood Cell Count 3.46 M/uL (3.86-4.86)
[2023-09-11 04:24] LABS: Albumin 2.5 g/dL (3.4-5.0); Bilirubin Total 0.5 mg/dL (0.2-1.0); C-Reactive Protein 65.3 mg/L (<3.00); Magnesium 2.1 mg/dL (1.6-2.4); Potassium 4.3 mEq/L (3.5-5.1); Protein, Total 6.4 g/dL (6.4-8.2)
--- NOTE | 2023-09-11 07:24 | RAD REPORT ---
EXAM DESCRIPTION: US - Extrem Venous W Compress Guru - 09/11/2023 6:11 am CLINICAL HISTORY: Lower extremity pain, dyspnea on exertion COMPARISON: No comparisons TECHNIQUE: Real-time sonographic evaluation of the lower extremity deep venous systems was performed using color Doppler, grayscale, and compression. FINDINGS: Bilateral lower extremities. Normal compressibility, flow augmentation, phasic flow and spontaneous flow is identified in both the left and right lower extremity deep venous systems. No intraluminal filling defects seen. IMPRESSION: No DVT in either lower extremity.
--- NOTE | 2023-09-11 08:07 | P.PN ---
Date of Service: 09/11/23 Subjective: No melena overnight Fevers improved, now only low grade after switching abx now with some nausea/vomiting C/O back pain-similar to past ROS: 10 point ROS as noted above, otherwise negative Physical exam GEN: Alert, oriented, NAD HEENT: Normal conjunctiva, sclera anicteric CV: Regular rate and rhythm, no edema Pulm: Nonlabored respirations on room air ABD: Soft, nontender, nondistended MSK: No joint tenderness Integumentary: No rashes Neuro: Normal speech, normal affect Vitals reviewed Problem List Chronic wound to right breast 2/ hidradenitis suppurativa Sepsis POA secondary to gram positive cocci bacteremia (Enterococcus faecalis) Acute blood loss anemia Recent history of CVA Diabetes mellitus Hypertension Hypercholesteremia Hypothyroidism Plan Chronic wound to right breast 2/2 hidradenitis suppurativa Sepsis POA secondary to gram positive cocci bacteremia (Enterococcus faecalis) PICC line in place First blood cultures from 09/01/2023 all 4 bottles positive Repeat blood cultures 09/03/2023 and 09/04/2023 with no growth Started running fevers again 09/07-09/08, up to 103 09/10 09/08 blood cultures repeated-no growth to date Switched from Vancomycin to daptomycin 09/10 given concern for VRE Levaquin switched to Azreonam for broad coverage given PCN/cephalosporin allergy CTA CAP with contrast negative for infectious findings 09/10 Viral swabs negative 09/10 Echo performed 09/10 pending interpretation 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 Fevers lower/less after switching antibiotics Acute blood loss anemia KRISHNA reports melena since one month ago when she started taking oral iron She has not been getting PO iron since she was admitted here Had BM without melena overnight HGB improved Started in BID PPI, GI consulted, added octreotide 09/10 Given 1 unit PRBC 09/10 EGD 09/09 with gastritis Holding asa/plavix/lovenox for now SCDs for DVT PPX Bleeding scan pending 09/11 Recent history of CVA 08/24/2023 seen at outside hospital for left-sided weakness CTA head and neck showed L P2 occlusion and bilateral carotid artery disease right moderate and left mild MRI showed subacute to chronic infarcts It appears patient was started on aspirin/Plavix at that time Currently needing to hold aspirin/Plavix given acute GI bleed, anemia Bleeding scan pending today, melena improving Will restart at least aspirin as soon as it is safe to do so Diabetes mellitus ACHS Accu-Chek, sliding scale insulin Hypertension Hypercholesteremia Hypothyroidism Continue home medications DVT ppx: SCD Full code LOS 4-5 Days- Social work to help with IV antibiotics therapy Time Spent Managing Pts Care (In Minutes): 35
[2023-09-11] MEDS: NA CHLORIDE 0.9% 1,000 ML IV SCH (08:10)
[2023-09-11] MEDS: HYDROCODONE/APAP 5/325 MG TAB PO PRN (08:10)
--- NOTE | 2023-09-11 09:53 | RAD REPORT ---
EXAM DESCRIPTION: NM - GI Blood Loss Imaging - 09/11/2023 9:43 am CLINICAL HISTORY: Gastrointestinal bleeding COMPARISON: None. TECHNIQUE: The patient was administered 26.2 millicuries technetium labeled red blood cells. Dynamic images of the abdomen and pelvis were obtained for 60 minutes FINDINGS: No abnormal radiotracer activity is seen within the bowel. No abnormality displayed IMPRESSION: No evidence of active gastrointestinal bleeding during the examination
[2023-09-11 17:43] LABS: Specific Gravity 1.026 (1.005-1.030); Urine Bacteria None Seen /HPF (<20); Urine Bilirubin NEGATIVE (Negative); Urine Blood Negative (Negative); Urine Clarity Turbid (Clear); Urine Color Yellow (Yellow); Urine Glucose NEGATIVE (Negative); Urine Mucus 2+ /HPF (None Seen); Urine Protein 2+ (Negative); Urine RBC <5 /HPF (None Seen); Urine Urobilinogen Normal (Normal)
[2023-09-11] MEDS: ALPRAZOLAM 0.25 MG TABLET PO PRN (19:55)
[2023-09-12 05:05] LABS: Hematocrit 25.3 % (36.0-45.0); MCV 74.3 fL (80-100); MPV 8.6 fL (7.6-11.3); Platelets 277 thou/uL (152-406)
[2023-09-12 05:30] LABS: Albumin 2.3 g/dL (3.4-5.0); Bilirubin Total 0.4 mg/dL (0.2-1.0); Potassium 4.1 mEq/L (3.5-5.1); Protein, Total 6.3 g/dL (6.4-8.2)
[2023-09-12] MEDS ORDERED: ALBUTEROL 2.5 MG/3 ML NEB SOL NEB PRN (06:34)
[2023-09-12] MEDS ORDERED: BENZONATATE 100 MG CAP PO PRN (06:34)
[2023-09-12 07:49] LABS: Anisocytosis 2+; Blood Morphology Comment NOTED (NOT SEEN); Ovalocytes 1+; Platelet Estimate ADEQ; White Blood Cell Scan OK (OK)
--- NOTE | 2023-09-12 14:19 | P.PN ---
Date of Service: 09/12/23 Subjective: No melena overnight Hgb stable Fevers improved, now only low grade after switching abx C/O back pain-similar to past ROS: 10 point ROS as noted above, otherwise negative Physical exam GEN: Alert, oriented, NAD HEENT: Normal conjunctiva, sclera anicteric CV: Regular rate and rhythm, no edema Pulm: Nonlabored respirations on room air ABD: Soft, nontender, nondistended MSK: No joint tenderness Integumentary: No rashes Neuro: Normal speech, normal affect Vitals reviewed Problem List Chronic wound to right breast 2/2 hidradenitis suppurativa Sepsis POA secondary to gram positive cocci bacteremia (Enterococcus faecalis) Acute blood loss anemia Recent history of CVA Diabetes mellitus Hypertension Hypercholesteremia Hypothyroidism Plan Chronic wound to right breast 2/2 hidradenitis suppurativa Sepsis POA secondary to gram positive cocci bacteremia (Enterococcus faecalis) PICC line in place First blood cultures from 09/01/2023 all 4 bottles positive Repeat blood cultures 09/03/2023 and 09/04/2023 with no growth Started running fevers again 09/07-09/08, up to 103 09/10 09/08 blood cultures repeated-no growth to date Switched from Vancomycin to daptomycin 09/10 given concern for VRE Levaquin switched to Azreonam 09/10 for broad coverage given PCN/cephalosporin allergy CTA CAP with contrast negative for infectious findings 09/10 Viral swabs negative 09/10 Echo performed 09/10 without vegetations 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 Fevers lower/less after switching antibiotics Acute blood loss anemia reports melena since one month ago when she started taking oral iron She has not been getting PO iron since she was admitted here No further melena HGB improved Started in BID PPI, GI consulted, DC octreotide 09/11 Given 1 unit PRBC 09/10 EGD 09/09 with gastritis Holding asa/plavix/lovenox for now SCDs for DVT PPX Bleeding scan pending 09/11-no active bleeding Recent history of CVA 08/24/2023 seen at outside hospital for left-sided weakness CTA head and neck showed L P2 occlusion and bilateral carotid artery disease right moderate and left mild MRI showed subacute to chronic infarcts It appears patient was started on aspirin/Plavix at that time Currently needing to hold aspirin/Plavix given acute GI bleed, anemia Bleeding scan pending today, melena improving Will restart at least aspirin as soon as it is safe to do so Records from [facility] MRI brain and CTA head and neck below 08/24 brain MRI FINDINGS: The ventricles and cerebral sulci are normal in caliber and configuration.No midline shift, hydrocephalus or pathological extra-axial fluidcollection is present. The basal cisterns are unremarkable. A tiny focus of diffusion hyperintensity without signal dropout on ADC mapin the left posterior periventricular white matter likely represents asubacute to chronic infarct (series 12 image 49). Scattered white matterT2/FLAIR hyperintense foci are present, likely sequelae of mild chronicmicrovascular ischemic disease. Focal small remote infarction with gliosisin the left occipital lobe. No abnormal gradient blooming. The T2 flow voids for the major intracranial vessels are unremarkable. Noabnormal fluid signal is present in the mastoid air cells or paranasal 08/23 FINDINGS: CTA HEAD: Bilateral intradural vertebral arteries are patent. The basilar artery isnormal in caliber. The superior cerebellar arteries are unremarkable.Occlusion of left RO[employer]FT[employer] distal P2 segment (11; 111). The right posteriorcerebral artery is unremarkable. Bilateral intradural internal carotid arteries are patent. Atherosclerosisof bilateral carotid siphon without flow- limiting stenosis. The anterior and middle cerebral arteries are unremarkable. An anteriorcommunicating artery is visualized. There is no aneurysm or vascular malformation. Dural venous sinuses are patent. CTA NECK: Classic three vessel branching anatomy of the aortic arch. There isatherosclerotic plaques of the aortic arch result in no significantluminalnarrowing or arch vessel origin stenosis. The innominate and bilateralsubclavian arteries are patent. Atherosclerosis of the bilateral carotid bulb/proximal ICA, predominantlysoft plaque, mildto moderate stenosis on the right and mild stenosis onthe left. Origin of bilateral vertebral arteries are patent. The vertebral arteriesare patent throughout their course up to the vertebrobasilar junction. Diabetes mellitus ACHS Accu-Chek, sliding scale insulin Hypertension Hypercholesteremia Hypothyroidism Continue home medications DVT ppx: SCD Full code LOS 4-5 Days- Social work to help with IV antibiotics therapy Time Spent Managing Pts Care (In Minutes): 35
[2023-09-13 05:10] LABS: Hematocrit 23.5 % (36.0-45.0); MCV 74.3 fL (80-100); Platelets 312 thou/uL (152-406); RBC Red Blood Cell Count 3.16 M/uL (3.86-4.86)
[2023-09-13 05:24] LABS: Albumin 2.1 g/dL (3.4-5.0); Bilirubin Total 0.4 mg/dL (0.2-1.0); Potassium 3.7 mEq/L (3.5-5.1)
--- NOTE | 2023-09-13 07:32 | ECHO ---
HEIGHT: 5 ft 5 in WEIGHT: 180 lb 0 oz DATE OF STUDY: 09/10/[address]: Fco Ramirez NP 2-DIMENSIONAL: YES M.MODE: YES DOPPLER: YES COLOR FLOW: YES TDS: NO PORTABLE: YES DEFINITY: NO BUBBLE STUDY: NO DIAGNOSIS: PERSISTENT FEVERS/G+ BACTEREMIA CARDIAC HISTORY: CATHERIZATION: SURGERY: PROSTHETIC VALVE: PACEMAKER: MEASUREMENTS (cm) DIASTOLIC (NORMALS) SYSTOLIC (NORMALS) IVSd 0.8 (0.6-1.2) LA Diam 3.2 (1.9-4.0) LVEF 59% LVIDd 3.8 (3.5-5.7) LVIDs 2.7 (2.0-3.5) %FS 30% LVPWd 0.9 (0.6-1.2) Ao Diam 2.6 (2.0-3.7) 2 DIMENSIONAL ASSESSMENT: RIGHT ATRIUM: NORMAL LEFT ATRIUM: NORMAL RIGHT VENTRICLE: NORMAL LEFT VENTRICLE: NORMAL TRICUSPID VALVE: MILD TRICUSPID REGURGITATION MITRAL VALVE: TRACE MITRAL REGURGITATION PULMONIC VALVE: NORMAL AORTIC VALVE: NORMAL PERICARDIAL EFFUSION: NONE AORTIC ROOT: NORMAL LEFT VENTRICULAR WALL MOTION: NORMAL. DOPPLER/COLOR FLOW: SEE BELOW. COMMENTS: 1. NORMAL LEFT VENTRICULAR EJECTION FRACTION GREATER THAN 60% WITH NORMAL WALL MOTION. 2. NO CLEAR VEGETATION IS SEE, TRANSESOPHAGEAL ECHOCARDIOGRAM CAN BE HELPFUL TO FURTHER EVALUATE IF INDICATED. 3. TRACE OF MITRAL REGURGITATION 4. MILD TRICUSPID REGURGITATION 5. SEVERE PULMONARY HYPERTENSION WITH RIGHT VENTRICULAR SYSTOLIC PRESSURE GREATER THAN 60mmHg. TECHNOLOGIST: GEO BREWSTER
[2023-09-13] MEDS: POTASSIUM CL SA 10 MEQ TAB PO ONE (09:53)
--- NOTE | 2023-09-13 10:04 | P.PN ---
Date of Service: 09/13/23 Subjective: No melena overnight No fevers overnight C/O some chest tightness/orthopnea Added trops/chest xray/ekg ROS: 10 point ROS as noted above, otherwise negative Physical exam GEN: Alert, oriented, NAD HEENT: Normal conjunctiva, sclera anicteric CV: Regular rate and rhythm, no edema Pulm: Nonlabored respirations on room air ABD: Soft, nontender, nondistended MSK: No joint tenderness Integumentary: No rashes Neuro: Normal speech, normal affect Vitals reviewed Problem List Chronic wound to right breast 2/2 hidradenitis suppurativa Sepsis POA secondary to gram positive cocci bacteremia (Enterococcus faecalis) Acute blood loss anemia Recent history of CVA Diabetes mellitus Hypertension Hypercholesteremia Hypothyroidism Plan Chronic wound to right breast 2/2 hidradenitis suppurativa Sepsis POA secondary to gram positive cocci bacteremia (Enterococcus faecalis) PICC line in place First blood cultures from 09/01/2023 all 4 bottles positive Repeat blood cultures 09/03/2023 and 09/04/2023 with no growth Started running fevers again 09/07-09/08, up to 103 09/10 09/08 blood cultures repeated-no growth to date Switched from Vancomycin to daptomycin 09/10 given concern for VRE Levaquin switched to Azreonam 09/10 for broad coverage given PCN/cephalosporin allergy CTA CAP with contrast negative for infectious findings 09/10 Viral swabs negative 09/10 Echo performed 09/10 without vegetations 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 Fevers lower/less after switching antibiotics Acute blood loss anemia reports melena since one month ago when she started taking oral iron She has not been getting PO iron since she was admitted here No further melena HGB improved Started in BID PPI, GI consulted, DC octreotide 09/11 Given 1 unit PRBC 09/10 EGD 09/09 with gastritis Holding asa/plavix/lovenox for now SCDs for DVT PPX Bleeding scan pending 09/11-no active bleeding Discuss need for Aspirin and DVT ppx with GI to see when we can resume Recent history of CVA 08/24/2023 seen at outside hospital for left-sided weakness CTA head and neck showed L P2 occlusion and bilateral carotid artery disease right moderate and left mild MRI showed subacute to chronic infarcts It appears patient was started on aspirin/Plavix at that time Currently needing to hold aspirin/Plavix given acute GI bleed, anemia Bleeding scan pending today, melena improving Will restart at least aspirin as soon as it is safe to do so Discussed with neurology today-given GI bleed recommend just daily aspirin, discontinue Plavix Resume when cleared by GI Records from [facility] [place] brain and CTA head and neck below 08/24 brain MRI FINDINGS: The ventricles and cerebral sulci are normal in caliber and configuration.No midline shift, hydrocephalus or pathological extra-axial fluidcollection is present. The basal cisterns are unremarkable. A tiny focus of diffusion hyperintensity without signal dropout on ADC mapin the left posterior periventricular white matter likely represents asubacute to chronic infarct (s eries 12 image 49). Scattered white matterT2/FLAIR hyperintense foci are present, likely sequelae of mild chronicmicrovascular ischemic disease. Focal small remote infarction with gliosisin the left occipital lobe. No abnormal gradient blooming. The T2 flow voids for the major intracranial vessels are unremarkable. Noabnormal fluid signal is present in the mastoid air cells or paranasal 08/23 FINDINGS: CTA HEAD: Bilateral intradural vertebral arteries are patent. The basilar artery isnormal in caliber. 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 The right posteriorcerebral artery is unremarkable. Bilateral intradural internal carotid arteries are patent. Atherosclerosisof bilateral carotid siphon without flow- limiting stenosis. The anterior and middle cerebral arteries are unremarkable. An anteriorcommunicating artery is visualized. There is no aneurysm or vascular malformation. Dural venous sinuses are patent. CTA NECK: Classic three vessel branching anatomy of the aortic arch. There isatherosclerotic plaques of the aortic arch result in no significantluminalnarrowing or arch vessel origin stenosis. The innominate and bilateralsubclavian arteries are patent. Atherosclerosis of the bilateral carotid bulb/proximal ICA, predominantlysoft plaque, mildto moderate stenosis on the right and mild stenosis onthe left. Origin of bilateral vertebral arteries are patent. The vertebral arteriesare patent throughout their course up to the vertebrobasilar junction. Diabetes mellitus ACHS Accu-Chek, sliding scale insulin Hypertension Hypercholesteremia Hypothyroidism Continue home medications DVT ppx: SCD Full code LOS 4-5 Days- Social work to help with IV antibiotics therapy Time Spent Managing Pts Care (In Minutes): 35 <Fco Ramirez - Last Filed: 09/13/23 09:58> Pt seen and examined on rounds this monring with [employer]NER Ashley. Agree with plan of care as noted above. improving no new/worsening symptoms afebrile overnight continue antibiotics resume aspirin <Christopher Pitts - Last Filed: 09/13/23 22:44>
--- NOTE | 2023-09-13 11:42 | RAD REPORT ---
EXAM DESCRIPTION: Cherelle Single View09/13/2023 11:34 am CLINICAL HISTORY: Chest pain COMPARISON: September 06, 2023 FINDINGS: Mild bilateral pulmonary opacities. Heart is borderline enlarged. PICC line with its tip i n the SVC IMPRESSION: Mild bilateral social opacities may indicate mild interstitial pulmonary edema
--- NOTE | 2023-09-13 13:08 | P.PN ---
Date of Service: 09/13/23 Chief Complaint: generalized weakness Subjective: Reports feeling better today. Still reports some chills/sweating overnight. Physical Examination Temp Pulse Resp BP Pulse Ox 97.6 F 65 18 118/61 93 09/13/23 08:00 09/13/23 08:00 09/13/23 08:00 09/13/23 08:00 09/13/23 08:00 General: in no apparent distress. A&Ox3 HEENT: head normocephalic, atraumatic. Resp: Clear to auscultation. Nonlabored respirations on room air CV: Regular rate and rhythm. No edema. Skin: Right breast wound/ hidradenitis. Laboratory Data - Reviewed Microbiology Data - Reviewed Imagings Data: - Reviewed Medications List: Reviewed Assessment and PLan Problem List E. faecalis bacteremia Chronic right breast wound Diabetes Mellitus Hypothyroidism Anemia Fever Hypertension Enterococcus faecalis Bacteremia - Blood cultures 09/01: Enterococcus faecalis in 4 of 4 bottles - repeat blood cultures 09/03: no growth to date - CT 09/01 Chest abdomen pelvis: "1. No acute abnormality of the chest, abdomen, or pelvis. 2. Mild paraseptal and centrilobular emphysematous changes versus cystic lung disease. Recommend further characterization by high-resolution chest CT or comparison with prior CT chest exams, if available. 3. Cholelithiasis. 4. Fecalization contents of multiple loops of small bowel. Nonspecific, but suggests decreased motility. 5. Additional nonacute findings as above." - Previously on Vancomycin and Levaquin IV -> switched to Daptomycin and Aztreonam 09/12 Patient began developing fever 09/08 of 100.7. 09/09-09/10: fevers up to 102.6F - Repeat blood cultures 09/08: no growth to date - 09/10 repeat influenza, covid, RSV = negative - repeat CT abdomen/pevis with contrast 09/10: "Cholelithiasis without evidence of cholecystitis" Recommendations - E.faecalis bacteremia: Vancomycin and Levaquin switched to Daptomycin and Aztreonam on 09/12. Continue for 10 days (09/12-09/22). - monitor CBC, BMP and fever trends - Wound care per Dr. Redmond - strict blood glucose control Case discussed with Alejandra Canas
[2023-09-13] MEDS: FUROSEMIDE 20 MG/ 2ML VIAL IV ONE (14:23)
[2023-09-13] MEDS: PANTOPRAZOLE 40MG TABLET PO SCH (17:37)
[2023-09-14 05:34] LABS: Hematocrit 23.3 % (36.0-45.0); MCV 73.6 fL (80-100); MPV 7.8 fL (7.6-11.3); Platelets 355 thou/uL (152-406); RBC Red Blood Cell Count 3.16 M/uL (3.86-4.86)
[2023-09-14 05:46] LABS: Potassium 3.5 mEq/L (3.5-5.1)
[2023-09-14 06:51] LABS: White Blood Cell Scan OK (OK)
[2023-09-14 06:52] LABS: Anisocytosis 2+; Blood Morphology Comment NOTED (NOT SEEN); Platelet Estimate ADEQ; Polychromasia 1+
[2023-09-14] MEDS: POTASSIUM CL SA 10 MEQ TAB PO ONE (09:42)
[2023-09-14] MEDS: FUROSEMIDE 20 MG/ 2ML VIAL IV SCH (09:42)
[2023-09-14] MEDS: ASPIRIN EC 81 MG TAB PO SCH (09:42)
--- NOTE | 2023-09-14 17:51 | P.PN ---
Date of Service: 09/14/23 Subjective: Awake, eating breakfast this AM Feeling well, reports improvement to her bladder pain from last week. More comfortable now with xanax ROS: 10 point ROS as noted above, otherwise negative Physical exam GEN: AAO x3, NAD, calm HEENT: Normal conjunctiva, sclera anicteric CV: RRR, no edema, S1 S2 present, no murmur noted Pulm: Nonlabored respirations on room air ABD: Soft, nontender, nondistended, normoactive bowel sounds present MSK: No joint tenderness or edema, 2+ peripheral pulses Integumentary: No rashes Neuro: Normal speech, normal affect Vitals reviewed Problem List Chronic wound to right breast 2/2 hidradenitis suppurativa Sepsis POA secondary to gram positive cocci bacteremia (Enterococcus faecalis) Acute blood loss anemia Recent history of CVA Diabetes mellitus Hypertension Hypercholesteremia Hypothyroidism Plan Chronic wound to right breast 2/2 hidradenitis suppurativa Sepsis POA secondary to gram positive cocci bacteremia (Enterococcus faecalis) PICC line in place First blood cultures from 09/01/2023 all 4 bottles positive Repeat blood cultures 09/03/2023 and 09/04/2023 with no growth Started running fevers again 09/07-09/08, up to 103 09/10 09/08 blood cultures repeated-no growth to date Continue daptomycin and azreonam- both started 09/10- symptom improvement CTA CAP with contrast negative for infectious findings 09/10 Viral swabs negative 09/10 Echo performed 09/10 without vegetations 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 Acute blood loss anemia reports melena since one month ago when she started taking oral iron She has not been getting PO iron since she was admitted here No further melena HGB improved Started in BID PPI, GI consulted, DC octreotide 09/11 Given 1 unit PRBC 09/10 EGD 09/09 with gastritis Holding asa/plavix/lovenox for now SCDs for DVT PPX Bleeding scan 09/11-no active bleeding Discuss need for Aspirin and DVT ppx with GI to see when we can resume Recent history of CVA 08/24/2023 seen at outside hospital for left-sided weakness CTA head and neck showed L P2 occlusion and bilateral carotid artery disease right moderate and left mild MRI showed subacute to chronic infarcts It appears patient was started on aspirin/Plavix at that time Currently needing to hold aspirin/Plavix given acute GI bleed, anemia Bleeding scan pending-no active bleed, melena improving Will restart at least aspirin as soon as it is safe to do so Discussed with neurology today-given GI bleed recommend just daily aspirin, discontinue Plavix Resume when cleared by GI Records from [facility] MRI brain and CTA head and neck below 08/24 brain MRI FINDINGS: The ventricles and cerebral sulci are normal in caliber and configuration.No midline shift, hydrocephalus or pathological extra-axial fluidcollection is present. The basal cisterns are unremarkable. A tiny focus of diffusion hyperintensity without signal dropout on ADC mapin the left posterior periventricular white matter likely represents asubacute to chronic infarct (series 12 image 49). Scattered white matterT2/FLAIR hyperintense foci are present, likely sequelae of mild chronicmicrovascular ischemic disease. Focal small remote infarction with gliosisin the left occipital lobe. No abnormal gradient blooming. The T2 flow voids for the major intracranial vessels are unremarkable. Noabnormal fluid signal is present in the mastoid air cells or paranasal 08/23 FINDINGS: CTA HEAD: Bilateral intradural vertebral arteries are patent. The basilar artery isnormal in caliber. 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 The right posteriorcerebral artery is unremarkable. Bilateral intradural internal carotid arteries are patent. Atherosclerosisof bilateral carotid siphon without flow- limiting stenosis. The anterior and middle cerebral arteries are unremarkable. An anteriorcommunicating artery is visualized. There is no aneurysm or vascular malformation. Dural venous sinuses are patent. CTA NECK: Classic three vessel branching anatomy of the aortic arch. There isatherosclerotic plaques of the aortic arch result in no significantluminalnarrowing or arch vessel origin stenosis. The innominate and bilateralsubclavian arteries are patent. Atherosclerosis of the bilateral carotid bulb/proximal ICA, predominantlysoft plaque, mildto moderate stenosis on the right and mild stenosis onthe left. Origin of bilateral vertebral arteries are patent. The vertebral arteriesare patent throughout their course up to the vertebrobasilar junction. Diabetes mellitus ACHS Accu-Chek, sliding scale insulin Hypertension Hypercholesteremia Hypothyroidism Continue home medications DVT ppx: SCD Full code LOS 4-5 Days- Social work to help with IV antibiotics therapy
[2023-09-15 05:02] LABS: Hematocrit 24.4 % (36.0-45.0); MCV 73.6 fL (80-100); MPV 8.2 fL (7.6-11.3); Platelets 338 thou/uL (152-406); RBC Red Blood Cell Count 3.31 M/uL (3.86-4.86)
[2023-09-15 05:11] LABS: Potassium 3.5 mEq/L (3.5-5.1)
[2023-09-15] MEDS: POTASSIUM CL SA 10 MEQ TAB PO ONE ×2 (09:43→10:01)
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
[2023-09-15] MEDS: ALTEPLASE 2 MG/VIAL IV SCH (19:42)
[2023-09-16 04:18] LABS: Hematocrit 23.4 % (36.0-45.0); MCV 72.6 fL (80-100); MPV 7.9 fL (7.6-11.3); Platelets 540 thou/uL (152-406); RBC Red Blood Cell Count 3.22 M/uL (3.86-4.86)
[2023-09-16 04:32] LABS: Potassium 3.6 mEq/L (3.5-5.1)
[2023-09-16 08:53] VITALS: BP 176/91; TEMP 98.3
[2023-09-16] MEDS: METOPROLOL TAR 25 MG TAB PO ONE (08:53)
[2023-09-16] MEDS: POTASSIUM CL SA 10 MEQ TAB PO ONE (08:54)
[2023-09-16] MEDS ORDERED: ALTEPLASE 2 MG/VIAL IV SCH (10:00)
[2023-09-16] MEDS: ALTEPLASE 2 MG/VIAL IV ONE (10:00)
[2023-09-16 11:58] VITALS: O2SAT 97
--- NOTE | 2023-09-18 14:09 | P.PN ---
Date of Service: 09/15/23 Subjective: Discharge order placed but delayed, patient needed to call for a ride. Comfortable today, ambulating independently on room air. ROS: 10 point ROS as noted above, otherwise negative Physical exam GEN: Alert and oriented x3, NAD, calm HEENT: Normal conjunctiva, sclera anicteric CV: RRR, no edema, S1 S2 present, no murmur noted Pulm: Nonlabored respirations on room air, clear breath sounds bilaterally ABD: Soft, nontender, nondistended, normoactive bowel sounds present MSK: No joint tenderness or edema, 2+ peripheral pulses Integumentary: No rashes Neuro: Normal speech, normal affect Vitals reviewed Problem List Chronic wound to right breast 2/2 hidradenitis suppurativa Sepsis POA secondary to gram positive cocci bacteremia (Enterococcus faecalis) Acute blood loss anemia Recent history of CVA Diabetes mellitus Hypertension Hypercholesteremia Hypothyroidism Plan Chronic wound to right breast 2/2 hidradenitis suppurativa Sepsis POA secondary to gram positive cocci bacteremia (Enterococcus faecalis) PICC line in place First blood cultures from 09/01/2023 all 4 bottles positive Repeat blood cultures 09/03/2023 and 09/04/2023 with no growth Started running fevers again 09/07-09/08, up to 103 09/10 09/08 blood cultures repeated-no growth to date Continue daptomycin and azreonam- both started 09/10- symptom improvement CTA CAP with contrast negative for infectious findings 09/10 Viral swabs negative 09/10 Echo performed 09/10 without vegetations 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 Acute blood loss anemia reports melena since one month ago when she started taking oral iron She has not been getting PO iron since she was admitted here No further melena HGB improved Started in BID PPI, GI consulted, DC octreotide 09/11 Given 1 unit PRBC 09/10 EGD 09/09 with gastritis Holding asa/plavix/lovenox for now SCDs for DVT PPX Bleeding scan 09/11-no active bleeding Discuss need for Aspirin and DVT ppx with GI to see when we can resume Recent history of CVA 08/24/2023 seen at outside hospital for left-sided weakness CTA head and neck showed L P2 occlusion and bilateral carotid artery disease right moderate and left mild MRI showed subacute to chronic infarcts It appears patient was started on aspirin/Plavix at that time Currently needing to hold aspirin/Plavix given acute GI bleed, anemia Bleeding scan pending-no active bleed, melena improving Will restart at least aspirin as soon as it is safe to do so Discussed with neurology today-given GI bleed recommend just daily aspirin, discontinue Plavix Resume when cleared by GI Records from [facility] MRI brain and CTA head and neck below 08/24 brain MRI FINDINGS: The ventricles and cerebral sulci are normal in caliber and configuration.No midline shift, hydrocephalus or pathological extra-axial fluid collection is present. The basal cisterns are unremarkable. A tiny focus of diffusion hyperintensity without signal dropout on ADC mapin the left posterior periventricular white matter likely represents asubacute to chronic infarct (series 12 image 49). Scattered white matterT2/FLAIR hyperintense foci are present, likely sequelae of mild chronicmicrovascular ischemic disease. Focal small remote infarction with gliosisin the left occipital lobe. No abnormal gradient blooming. The T2 flow voids for the major intracranial vessels are unremarkable. Noabnormal fluid signal is present in the mastoid air cells or paranasal 08/23 FINDINGS: CTA HEAD: Bilateral intradural vertebral arteries are patent. The basilar artery isnormal in caliber. The superior cerebellar arteries are unremarkable.Occlusion of left [employer] distal P2 segment (11; 111). The right posteriorcerebral artery is unremarkable. Bilateral intradural internal carotid arteries are patent. Atherosclerosisof bilateral carotid siphon without flow- limiting stenosis. The anterior and middle cerebral arteries are unremarkable. An anteriorcommunicating artery is visualized. There is no aneurysm or vascular malformation. Dural venous sinuses are patent. CTA NECK: Classic three vessel branching anatomy of the aortic arch. There isatherosclerotic plaques of the aortic arch result in no significantluminalnarrowing or arch vessel origin stenosis. The innominate and bilateralsubclavian arteries are patent. Atherosclerosis of the bilateral carotid bulb/proximal ICA, predominantlysoft plaque, mildto moderate stenosis on the right and mild stenosis onthe left. Origin of bilateral vertebral arteries are patent. The vertebral arteriesare patent throughout their course up to the vertebrobasilar junction. Diabetes mellitus ACHS Accu-Chek, sliding scale insulin Hypertension Hypercholesteremia Hypothyroidism Continue home medications DVT ppx: SCD Full code LOS 24 hours- Social work to help with IV antibiotics therapy
== END 2023-09-16 10:45 | disposition home health service (06) | DRG 872 ==
LOC: ER 22:20 → ERHOLD 09-01 05:39 → 2ND 09-01 16:26 → OBSVTOIN 09-02 15:33
PROVIDERS: ADMIT Internal Medicine Nephrology; ATTEND Internal Medicine
PROC: 02HV33Z Insertion of Infusion Device into Superior Vena Cava, Percutaneous Approach (ICD-10-PCS; 2023-09-06)
PROC: 0DB68ZX Excision of Stomach, Via Natural or Artificial Opening Endoscopic, Diagnostic (ICD-10-PCS; 2023-09-09)
PROC: 0DB98ZX Excision of Duodenum, Via Natural or Artificial Opening Endoscopic, Diagnostic (ICD-10-PCS; principal; 2023-09-09 09:30)
DX: A41.81 Sepsis due to Enterococcus (principal); K92.1 Melena; D62 Acute posthemorrhagic anemia; Z16.21 Resistance to vancomycin; I69.354 Hemiplegia and hemiparesis following cerebral infarction affecting left non-dominant side; N60.81 Other benign mammary dysplasias of right breast; I10 Essential (primary) hypertension; E11.9 Type 2 diabetes mellitus without complications; E03.9 Hypothyroidism, unspecified; E78.00 Pure hypercholesterolemia, unspecified; K59.00 Constipation, unspecified; K29.70 Gastritis, unspecified, without bleeding; K31.89 Other diseases of stomach and duodenum; L73.2 Hidradenitis suppurativa; I65.23 Occlusion and stenosis of bilateral carotid arteries; K80.20 Calculus of gallbladder without cholecystitis without obstruction; L27.0 Generalized skin eruption due to drugs and medicaments taken internally; T36.1X5A Adverse effect of cephalosporins and other beta-lactam antibiotics, initial encounter; T45.4X5A Adverse effect of iron and its compounds, initial encounter; F17.210 Nicotine dependence, cigarettes, uncomplicated; R21 Rash and other nonspecific skin eruption; R30.0 Dysuria; R00.0 Tachycardia, unspecified; Z88.0 Allergy status to penicillin; Z11.52 Encounter for screening for COVID-19; Z79.82 Long term (current) use of aspirin; Z79.02 Long term (current) use of antithrombotics/antiplatelets; Z79.84 Long term (current) use of oral hypoglycemic drugs; Z79.899 Other long term (current) drug therapy; Z79.890 Hormone replacement therapy
CPT/HCPCS: 0241U; 36415; 36569; 71045; 71260; 74177; 76641; 78278; 80048; 80053; 80076; 80202; 81001; 81003; 82550; 82607; 82728; 82947; 83010; 83540; 83615; 83735; 83880; 84100; 84145; 84466; 84484; 85014; 85018; 85025; 85027; 85044; 85610; 86140; 86850; 86900; 86901; 86920; 87040; 87077; 87186; 87205; 87804; 87811; 88305; 88312; 93005; 93306; 93970; 97110; 97116; 97162; 97530; 99285; A9560; C9113; G0378; J0171; J0692; J0878; J1650; J1815; J1940; J2001; J2270; J2354; J2405; J2704; J2765; J2997; J3475; J7030; J7040; J7050; P9016; Q9967